=== PATIENT | female | born 1950 | race Caucasian/White ===

== ENCOUNTER 2018-01-25 09:46 | Day surgery (SDC) | payer OTHER ==
[~2018-01-25 09:46] MED LIST: ACET325 PO; ACET500 PO; ALBU90OI IH; ALBU90OI INH; ALBU90OI6 INH; ALBU90OI61 INH; ALPR.25 PO; ALPR1 PO; AMIO200 PO; ASCO500 PO; ASPI325 PO; ASPI81CH PO; AZIT250 PO; Antivert12.5 MG PO; BENICAR PO; BENTYL10 MG PO; BREO ELLIPTA 11 EACH IH; Bentyl10 MG; Brovana15 MCG/2 M; Brovana15 MCG/2 M INH; CARI350 PO; CELE200 PO; CELECOXIB200 MG; CETI5 PO; CHOL10002 PO; CIPR250 PO; CYCL10 PO; DEXL60CA3; DIAZ2 PO; DICL25ER PO; DICY20 PO; DOCSEN PO; DRON400T PO; Dicyclomine HCl10 MG PO; ENOX100I SC; ERGO400 PO; ERGO50000 PO; ESTNOR PO; ESTR.1TPBW TOP; ESTR1; ESTR2 PO; ESTRADIOL PO; FERR325 PO; FLUSAL1005 IH; FLUSAL2505 IH; FLUSAL5005 IH; FLUT110OIA INH; FURO80 PO; HYDACE5 PO; HYOS.125 SL; IBUP100S PO; IBUP400 PO; IBUP800; IBUP800 PO; LANS30EC PO; LAVAP17G; LISI20; LISI20 PO; LISI5 PO; Lisinopril2.5 MG; MAGGLU250 PO; MAGOXI400 PO; MECL25 PO; MEDR5 PO; METALAZONE; METO100ER PO; METO50 PO; METO50ER PO; METO5A PO; MULT50FEL PO; MULVITB&C; MULVITMINE PO; MULVITMINF PO; NEBI5 PO; NITR.6SL SL; NYST100P TOP; OLME40 PO; OMEP10ER; OMEP40CA12 PO; ONDA4ODT MM; OSTERA TABLET1 EACH PO; OXYACE5T PO; OXYC5 PO; PANT40 PO; PENNSAID112 GM TP; PENVK500; PROACE100; PROACE100 PO; Prednisone20 MG PO; RANI150 PO; RXCYCL10 PO; RXHYDACE PO; RXSULTRIDS PO; Ranitidine HCl300 MG; SENN187 PO; SENNP; SOMA350 MG; SOMA350 MG GT; SOMA350 MG PO; SOTO80 PO; SPIR25 PO; SULTRIDS PO; TIOT18; TIOT18 IH; TORSE20 PO; TRAZ50 PO; VARE1 PO; VITAMIN D32000 UNI1 PO; Vitamin C100 M1 PO; WARF10 PO; WARF3 PO; WARF4 PO; WARF5 PO; [UNRECOGNIZED DRUG - REMARK]
== END 2018-01-25 22:56 | disposition home or self-care (01) ==
LOC: RAD 09:46
PROVIDERS: Radiology Diagnostic Radiology
PROC: B02BYZZ Computerized Tomography (CT Scan) of Spinal Cord using Other Contrast (ICD-10-PCS; principal; 2018-01-25 11:30)
DX: M51.37 Other intervertebral disc degeneration, lumbosacral region (principal); M79.605 Pain in left leg; R20.0 Anesthesia of skin; I10 Essential (primary) hypertension; Z87.891 Personal history of nicotine dependence
CPT/HCPCS: 62304; 72132; Q9966

== ENCOUNTER 2018-01-27 13:51 | Emergency (ER) | payer OTHER ==
[~2018-01-27] VITALS: Ht 172.7 cm; Wt 112.5 kg
[2018-01-27] MEDS ORDERED: EVAMIST INH (14:41)
[2018-01-27] MEDS ORDERED: ENOX120I (14:42)
[2018-01-27] MEDS ORDERED: SOMA350 MG PO (14:42)
[2018-01-27] MEDS ORDERED: Ultram50 MG PO (15:48)
[2018-01-27] MEDS ORDERED: Kristalose20 GM PO (15:48)
== END 2018-01-27 16:00 | disposition home or self-care (01) ==
LOC: ER 13:51
DX: M54.9 Dorsalgia, unspecified (principal); G89.29 Other chronic pain; I10 Essential (primary) hypertension; I48.91 Unspecified atrial fibrillation; J44.9 Chronic obstructive pulmonary disease, unspecified; K21.9 Gastro-esophageal reflux disease without esophagitis; Z79.899 Other long term (current) drug therapy; Z79.01 Long term (current) use of anticoagulants
CPT/HCPCS: 72131; 99284

== ENCOUNTER → 2018-02-04 | Outpatient (CLI) | payer OTHER ==
[~2018-02-04] MED LIST changes: +ENOX120I; +EVAMIST INH; +Kristalose20 GM PO; +Ultram50 MG PO
== END | disposition home or self-care (01) ==
LOC: LAB 10:56
DX: R19.7 Diarrhea, unspecified (principal); R10.9 Unspecified abdominal pain; G89.29 Other chronic pain
CPT/HCPCS: 87329; 87493

== ENCOUNTER → 2019-02-20 | Outpatient (CLI) | payer OTHER ==
[~2019-02-20] MED LIST changes: -EVAMIST INH; +EVAMIST TOP; +Flovent 110 MCG12 GM INH; +INCRUSE ELLI62.5 MCG INH; +VOLTAREN100 GM
== END | disposition home or self-care (01) ==
LOC: LAB 17:29 → LAB SHORT 17:29
DX: L29.3 Anogenital pruritus, unspecified (principal)
CPT/HCPCS: 87070; 87205

== ENCOUNTER 2019-03-29 11:45 | Day surgery (SDC) | payer OTHER ==
[~2019-03-29] VITALS: Ht 172.7 cm; Wt 111.4 kg
--- NOTE | 2019-03-29 12:58 | NUR ---
03/29/19 1258 Ilan Andino 1ST IV ATTEMPT IN RH UNSUCCESSFUL, ORSC.BDK 2ND IV ATTEMPT IN RH UNSUCCESSFUL, ORSC.RSX 3RD IV ATTEMPT IN RW SUCCESSFUL, ORSC.RXS
== END 2019-03-29 14:18 | disposition home or self-care (01) ==
LOC: ORSCSDS 11:45
PROVIDERS: Internal Medicine Gastroenterology
PROC: 0DB58ZX Excision of Esophagus, Via Natural or Artificial Opening Endoscopic, Diagnostic (ICD-10-PCS; principal; 2019-03-29 13:00)
PROC: 0DB68ZX Excision of Stomach, Via Natural or Artificial Opening Endoscopic, Diagnostic (ICD-10-PCS; principal; 2019-03-29 13:00)
DX: K21.9 Gastro-esophageal reflux disease without esophagitis (principal); K22.70 Barrett's esophagus without dysplasia; K31.7 Polyp of stomach and duodenum; I10 Essential (primary) hypertension; Z95.0 Presence of cardiac pacemaker; J44.9 Chronic obstructive pulmonary disease, unspecified; Z87.891 Personal history of nicotine dependence; Z79.899 Other long term (current) drug therapy; Z79.01 Long term (current) use of anticoagulants; E66.01 Morbid (severe) obesity due to excess calories; Z68.37 Body mass index [BMI] 37.0-37.9, adult
CPT/HCPCS: 88305; J2704; J7120

== ENCOUNTER → 2019-05-26 | Outpatient (CLI) | payer OTHER | END | disposition home or self-care (01) | LOC: OLS 10:46 → LAB SHORT 10:46 | DX: R05 Cough (principal) | CPT/HCPCS: 87070; 87205 ==

== ENCOUNTER → 2019-06-29 | Outpatient (CLI) | payer OTHER | END | disposition home or self-care (01) | LOC: LAB 14:44 → LAB SHORT 14:44 | DX: R30.0 Dysuria (principal) | CPT/HCPCS: 87086 ==

== ENCOUNTER → 2019-07-26 | Outpatient (CLI) | payer OTHER ==
[2019-07-31 16:06] LABS: HPV 16 Negative (Negative); HPV 18 Negative (Negative); HPV OTHER HR TYPES Positive (Negative)
== END | disposition home or self-care (01) ==
LOC: LAB 20:29 → LAB SHORT 20:29
PROVIDERS: Family Medicine
DX: Z12.4 Encounter for screening for malignant neoplasm of cervix (principal); R39.15 Urgency of urination; R33.9 Retention of urine, unspecified
CPT/HCPCS: 87624; 87625; G0145

== ENCOUNTER 2019-08-08 12:30 | Emergency (ER) | payer OTHER ==
[~2019-08-08] VITALS: Ht 172.7 cm; Wt 108.0 kg
[2019-08-08 13:41] LABS: BASOPHILS ABSOLUTE AUTO 0.04 K/mm3 (0.00-0.23); BASOPHILS PERCENT AUTO 1 % (0-2); EOSINOPHILS ABSOLUTE AUTO 0.06 K/mm3 (0.00-0.68); EOSINOPHILS PERCENT AUTO 1 % (0-6); Hematocrit 42.2 % (33.0-51.0); Hemoglobin 13.7 g/dL (11.5-16.0); IMMATURE GRAN ABSOLUTE AUTO 0.02 K/mm3 (0.00-0.10); IMMATURE GRAN PERCENT AUTO 0 % (0-1); LYMPHOCYTES ABSOLUTE AUTO 0.95 K/mm3 (0.84-5.20); LYMPHOCYTES PERCENT AUTO 14 % (21-46); MONOCYTES PERCENT AUTO 10 % (4-13); Mean Corpuscular HGB 27.8 pg (26.0-34.0); Mean Corpuscular HGB Conc 32.5 g/dL (31.5-36.5); Mean Corpuscular Volume 86 fL (80-100); Mean Platelet Volume 10.3 fL (9.1-12.4); NEUTROPHILS ABSOLUTE AUTO 5.18 K/mm3 (1.96-9.15); NEUTROPHILS PERCENT AUTO 74 % (41-73); Platelet Count 237 K/mm3 (150-400); RDW Coefficient Variation 17.2 % (11.7-14.2); RDW Standard Deviation 53.6 fL (35.1-46.3); Red Blood Cell Count 4.93 M/mm3 (3.80-5.20); White Blood Cell Count 6.95 K/mm3 (4.00-11.30)
[2019-08-08 13:59] LABS: Alanine Aminotransfer (ALT/SGP 37 U/L (12-78); Albumin/Globulin Ratio 1.3 (0.8-1.8); Alk Phos 95 U/L (50-136); Anion Gap 6 mmol/L (6-16); Aspartate Aminotrans (AST/SGOT 23 U/L (12-37); Bilirubin, Total 0.8 mg/dL (0.1-1.0); Blood Urea Nitrogen 11 mg/dL (8-24); Bun/Creatinine Ratio 17.5 (12.0-20.0); CO2, Blood 24 mmol/L (21-32); Calcium, Blood 8.9 mg/dL (8.5-10.1); Chloride, Blood 108 mmol/L (98-108); Creatinine, Blood 0.63 mg/dL (0.40-1.00); Globulin, Blood 3.1 g/dL (2.2-4.0); Glomerular Filtration Rate >60 (60-); Glucose, Blood 117 mg/dL (70-99); Potassium, Blood 4.6 mmol/L (3.5-5.5); Sodium, Blood 138 mmol/L (136-145); Total Protein, Blood 7.1 g/dL (6.4-8.2)
[2019-08-08 14:43] LABS: International Normalized Ratio 2.57
[2019-08-08 14:56] LABS: Source, Urine Clean Catch
[2019-08-08 15:04] LABS: Bilirubin, Urine Neg (Neg); Blood, Urine 1+ (Neg); Glucose Qualitative, Urine Neg (Neg); Ketones, Urine 1+ (Neg); Leukocyte Esterase, Urine 1+ (Neg); Nitrite, Urine Pos (Neg); Protein, Urine 2+ (Neg); Specific Gravity, Urine 1.015 (1.003-1.022); Urobilinogen, Urine NORM (Normal)
[2019-08-08 15:22] LABS: Appearance, Urine Hazy (Clear); Color, Urine Yellow (P-Yellow)
[2019-08-08 15:23] LABS: Bacteria Few /hpf; Red Blood Cells, Urine 0-2 /hpf (0-2); Squamous Epithelial Cells Many /hpf (Few); White Blood Cells, Urine Rare /hpf (0-5)
== END 2019-08-08 16:28 | disposition home or self-care (01) ==
LOC: ER 12:30
PROVIDERS: Emergency Medicine
DX: R06.02 Shortness of breath (principal); R35.0 Frequency of micturition; I48.92 Unspecified atrial flutter; I48.91 Unspecified atrial fibrillation; J44.9 Chronic obstructive pulmonary disease, unspecified; I10 Essential (primary) hypertension; K21.9 Gastro-esophageal reflux disease without esophagitis; Z95.2 Presence of prosthetic heart valve; Z88.5 Allergy status to narcotic agent; Z91.018 Allergy to other foods; Z88.8 Allergy status to other drugs, medicaments and biological substances; Z79.899 Other long term (current) drug therapy
CPT/HCPCS: 36415; 71046; 80053; 81001; 83880; 85025; 85610; 87077; 87086; 87186; 93005; 93010; 99284-25

== ENCOUNTER → 2020-01-03 | Outpatient (CLI) | payer OTHER | END | disposition home or self-care (01) | LOC: LAB 07:00 → LAB SHORT 07:00 | DX: R19.7 Diarrhea, unspecified (principal) | CPT/HCPCS: 87015; 87045; 87046; 87205; 87899 ==

== ENCOUNTER → 2020-01-11 | Outpatient (CLI) | payer OTHER | END | disposition home or self-care (01) | LOC: LAB SHORT 07:00 → LAB 07:00 | DX: R19.7 Diarrhea, unspecified (principal) | CPT/HCPCS: 87177; 87209 ==

== ENCOUNTER 2020-01-31 08:37 | Day surgery (SDC) | payer OTHER ==
[~2020-01-31] VITALS: Ht 172.7 cm; Wt 104.3 kg
[2020-01-31] MEDS ORDERED: SPIR25 PO (09:23)
--- NOTE | 2020-01-31 10:04 | NUR ---
01/31/20 1004 ELDA ROJAS PATIENT REPORTED TAKING HER LOVENOX SHOT AT 1800 ON 01/30/2020, WITHIN 24 HOURS OF PLANNED UPPER ENDOSCOPY AND VENTRAL HERNIA REPAIR. PER MD INSTRUCTIONS - PATIENT TO HAVE BEEN OFF LOVENOX FOR 24 HOURS PRIOR TO PROCEDURE. BOTH AND DR. TABARES CONSULTED ON THIS CASE AND BOTH WERE INFORMED OF PATIENT HAVING LOVENOX SHOT WITH IN LAST 24 HOURS. BOTH PROVIDERS (RAYSHAWN AND CHRYSTAL) OPTED TO CANCEL PROCEDURES TODAY. PATIENT IV REMOVED AND PATIENT DRESSED. SHE LEFT FACILITY AMBULATING WITH CANE, AT BASELINE.
--- NOTE | 2020-01-31 10:06 | NUR ---
01/31/20 1006 ELDA ROJAS PLEASE SEE DETAILED NOTE FROM ACCOUNT FOR PATIENT WITH DR. TABARES FOR UPPER ENDOSCOPY - PATIENT GAVE SELF LOVENOX SHOT AT 1800 ON 01/30/2020 WHICH WAS WITHIN 24 HOURS OF PLANNED UPPER ENDOSCOPY AND VENTRAL HERNIA REPAIR SCHEDULED FOR TODAY, 01/31/2020 AT 1000. BOTH PROVIDERS (SANAZ AND RAYSHAWN) OPTED TO CANCEL PROCEDURE.
== END 2020-01-31 10:05 | disposition home or self-care (01) ==
LOC: ORSCSDS 08:37
DX: K42.9 Umbilical hernia without obstruction or gangrene (principal); K92.1 Melena; Z53.9 Procedure and treatment not carried out, unspecified reason
CPT/HCPCS: 82947; J0690; J7120

== ENCOUNTER 2020-02-19 06:43 | Day surgery (SDC) | payer OTHER ==
[~2020-02-19] VITALS: Ht 172.7 cm; Wt 104.9 kg
--- NOTE | 2020-02-19 08:33 | NUR ---
02/19/20 0833 Gris Parra PATIENT WILL BE TRANSFERRED TO [facility] VIA [facility] FOR VENTRAL HERNIA REPAIR WITH DR. YO
== END 2020-02-19 11:20 | disposition home or self-care (01) ==
LOC: ORSCSDS 06:43
PROVIDERS: Internal Medicine Gastroenterology; Surgery
PROC: 0DB68ZX Excision of Stomach, Via Natural or Artificial Opening Endoscopic, Diagnostic (ICD-10-PCS; principal; 2020-02-19 08:00)
PROC: 0WUF0JZ Supplement Abdominal Wall with Synthetic Substitute, Open Approach (ICD-10-PCS; principal; 2020-02-19 08:00)
DX: K43.9 Ventral hernia without obstruction or gangrene (principal); K31.7 Polyp of stomach and duodenum; K22.70 Barrett's esophagus without dysplasia; K44.9 Diaphragmatic hernia without obstruction or gangrene; K25.9 Gastric ulcer, unspecified as acute or chronic, without hemorrhage or perforation; Z79.01 Long term (current) use of anticoagulants; I10 Essential (primary) hypertension; I25.10 Atherosclerotic heart disease of native coronary artery without angina pectoris; Z95.0 Presence of cardiac pacemaker; I50.9 Heart failure, unspecified; Z79.899 Other long term (current) drug therapy; E66.9 Obesity, unspecified; Z68.35 Body mass index [BMI] 35.0-35.9, adult; J44.9 Chronic obstructive pulmonary disease, unspecified
CPT/HCPCS: 82947; 88305; C1781; J0690; J1100; J2001; J2370; J2405; J2704; J3010; J7040; J7120

== ENCOUNTER → 2020-03-10 | Outpatient (CLI) | payer OTHER ==
[2020-03-10 19:48] LABS: BASOPHILS ABSOLUTE AUTO 0.07 K/mm3 (0.00-0.23); BASOPHILS PERCENT AUTO 1 % (0-2); EOSINOPHILS ABSOLUTE AUTO 0.09 K/mm3 (0.00-0.68); EOSINOPHILS PERCENT AUTO 1 % (0-6); Hemoglobin 14.9 g/dL (11.5-16.0); IMMATURE GRAN ABSOLUTE AUTO 0.02 K/mm3 (0.00-0.10); IMMATURE GRAN PERCENT AUTO 0 % (0-1); LYMPHOCYTES ABSOLUTE AUTO 1.33 K/mm3 (0.84-5.20); LYMPHOCYTES PERCENT AUTO 16 % (21-46); MONOCYTES ABSOLUTE AUTO 0.72 K/mm3 (0.16-1.47); MONOCYTES PERCENT AUTO 9 % (4-13); Mean Corpuscular HGB 27.5 pg (26.0-34.0); Mean Corpuscular HGB Conc 32.4 g/dL (31.5-36.5); Mean Corpuscular Volume 85 fL (80-100); Mean Platelet Volume 10.8 fL (9.1-12.4); NEUTROPHILS ABSOLUTE AUTO 6.01 K/mm3 (1.96-9.15); NEUTROPHILS PERCENT AUTO 73 % (41-73); Platelet Count 278 K/mm3 (150-400); RDW Coefficient Variation 14.2 % (11.7-14.2); RDW Standard Deviation 44.3 fL (35.1-46.3); Red Blood Cell Count 5.42 M/mm3 (3.80-5.20); White Blood Cell Count 8.24 K/mm3 (4.00-11.30)
[2020-03-10 20:27] LABS: Percent Saturation 14.4 % (15.0-50.0)
== END | disposition home or self-care (01) ==
LOC: LAB SHORT 18:40 → LAB 18:40
PROVIDERS: Internal Medicine Hematology & Oncology
DX: E61.1 Iron deficiency (principal)
CPT/HCPCS: 83540; 83550; 85025

== ENCOUNTER → 2020-05-14 | Outpatient (CLI) | payer OTHER | END | disposition home or self-care (01) | LOC: PLD 17:49 → LAB SHORT 17:49 → LAB 17:49 | DX: R30.0 Dysuria (principal) | CPT/HCPCS: 87086 ==

== ENCOUNTER → 2020-07-04 | Outpatient (CLI) | payer OTHER ==
[~2020-07-04] MED LIST changes: +ALBU2.5V5 NEB; +Bentyl10 MG PO; -Brovana15 MCG/2 M; +Brovana15 MCG/2 M NEB; +DEXA2 PO; +DOCUZEN 8.6-501 EACH PO; +ESTRADIOL TOP; +ESTRADIOL42.5 GM VAG; -EVAMIST TOP; -Flovent 110 MCG12 GM INH; +Flovent 220 Ora12 GM INH; +GUAI600T33 PO; +IBUP600 PO; -INCRUSE ELLI62.5 MCG INH; +INCRUSE ELLIPTA 62.5 INH; +MULTI-VITAMIN1 EAC2 PO; +MYRBETRIQ50 MG PO; -NYST100P TOP; +NYSTOP15 GM TOP; +VITAMIN D31000 UNI1 PO; +ZYRTEC10 M2 PO
== END | disposition home or self-care (01) ==
LOC: LAB 15:00 → LAB SHORT 15:00
DX: R60.0 Localized edema (principal)
CPT/HCPCS: 87070; 87205

== ENCOUNTER 2020-07-11 11:31 | Emergency (ER) | payer OTHER ==
[~2020-07-11] VITALS: Ht 172.7 cm; Wt 109.8 kg
[~2020-07-11 11:31] MED LIST changes: -ALBU2.5V5 NEB; -Bentyl10 MG PO; +Brovana15 MCG/2 M; -Brovana15 MCG/2 M NEB; -DEXA2 PO; -DOCUZEN 8.6-501 EACH PO; -ESTRADIOL TOP; -ESTRADIOL42.5 GM VAG; +EVAMIST TOP; +Flovent 110 MCG12 GM INH; -Flovent 220 Ora12 GM INH; -GUAI600T33 PO; -IBUP600 PO; +INCRUSE ELLI62.5 MCG INH; -INCRUSE ELLIPTA 62.5 INH; -MULTI-VITAMIN1 EAC2 PO; -MYRBETRIQ50 MG PO; +NYST100P TOP; -NYSTOP15 GM TOP; -VITAMIN D31000 UNI1 PO; -ZYRTEC10 M2 PO
[2020-07-11 12:25] LABS: BASOPHILS ABSOLUTE AUTO 0.04 K/mm3 (0.00-0.23); BASOPHILS PERCENT AUTO 1 % (0-2); EOSINOPHILS ABSOLUTE AUTO 0.08 K/mm3 (0.00-0.68); EOSINOPHILS PERCENT AUTO 1 % (0-6); Hemoglobin 14.2 g/dL (11.5-16.0); IMMATURE GRAN ABSOLUTE AUTO 0.02 K/mm3 (0.00-0.10); IMMATURE GRAN PERCENT AUTO 0 % (0-1); LYMPHOCYTES ABSOLUTE AUTO 0.94 K/mm3 (0.84-5.20); LYMPHOCYTES PERCENT AUTO 13 % (21-46); MONOCYTES ABSOLUTE AUTO 0.66 K/mm3 (0.16-1.47); MONOCYTES PERCENT AUTO 9 % (4-13); Mean Corpuscular HGB 26.9 pg (26.0-34.0); Mean Corpuscular HGB Conc 31.6 g/dL (31.5-36.5); Mean Corpuscular Volume 85 fL (80-100); Mean Platelet Volume 10.5 fL (9.1-12.4); NEUTROPHILS PERCENT AUTO 77 % (41-73); Platelet Count 209 K/mm3 (150-400); RDW Coefficient Variation 14.7 % (11.7-14.2); RDW Standard Deviation 46.4 fL (35.1-46.3); Red Blood Cell Count 5.27 M/mm3 (3.80-5.20); White Blood Cell Count 7.44 K/mm3 (4.00-11.30)
[2020-07-11 12:45] LABS: Alanine Aminotransfer (ALT/SGP 48 U/L (12-78); Albumin, Blood 3.6 g/dL (3.4-5.0); Albumin/Globulin Ratio 1.2 (0.8-1.8); Alk Phos 73 U/L (50-136); Anion Gap 5 mmol/L (6-16); Aspartate Aminotrans (AST/SGOT 23 U/L (12-37); Bilirubin, Total 1.4 mg/dL (0.1-1.0); Blood Urea Nitrogen 11 mg/dL (8-24); Bun/Creatinine Ratio 14.8 (12.0-20.0); CO2, Blood 29 mmol/L (21-32); Chloride, Blood 106 mmol/L (98-108); Creatinine, Blood 0.74 mg/dL (0.40-1.00); Globulin, Blood 3.1 g/dL (2.2-4.0); Glomerular Filtration Rate >60 (60-); Glucose, Blood 147 mg/dL (70-99); Sodium, Blood 140 mmol/L (136-145); Total Protein, Blood 6.7 g/dL (6.4-8.2); Troponin I <0.015 ng/mL (0.000-0.040)
[2020-07-11] MEDS ORDERED: MYRBETRIQ50 MG PO (13:31)
[2020-07-11] MEDS ORDERED: SENN187 PO (13:33)
[2020-07-11] MEDS ORDERED: ELLIPTA INH (13:38)
== END 2020-07-11 14:14 | disposition home or self-care (01) ==
LOC: ER 11:31
PROVIDERS: Emergency Medicine
DX: I87.8 Other specified disorders of veins (principal); R06.02 Shortness of breath; R33.9 Retention of urine, unspecified; I48.91 Unspecified atrial fibrillation; I10 Essential (primary) hypertension; J44.9 Chronic obstructive pulmonary disease, unspecified; K21.9 Gastro-esophageal reflux disease without esophagitis; Z87.891 Personal history of nicotine dependence; Z79.01 Long term (current) use of anticoagulants; Z79.899 Other long term (current) drug therapy; Z95.0 Presence of cardiac pacemaker
CPT/HCPCS: 36415; 71045; 80053; 83880; 84484; 85025; 93005; 93010; 99284-25

== ENCOUNTER 2020-08-01 10:57 | Inpatient (IN) | payer OTHER ==
[~2020-08-01] VITALS: Ht 172.7 cm; Wt 99.6 kg
[~2020-08-01 10:57] MED LIST changes: -Brovana15 MCG/2 M; -EVAMIST TOP; -Flovent 110 MCG12 GM INH; -INCRUSE ELLI62.5 MCG INH; -NYST100P TOP
[2020-08-01 11:47] LABS: BASOPHILS ABSOLUTE AUTO 0.01 K/mm3 (0.00-0.23); BASOPHILS PERCENT AUTO 0 % (0-2); EOSINOPHILS PERCENT AUTO 0 % (0-6); Hematocrit 44.4 % (33.0-51.0); Hemoglobin 14.6 g/dL (11.5-16.0); IMMATURE GRAN ABSOLUTE AUTO 0.01 K/mm3 (0.00-0.10); IMMATURE GRAN PERCENT AUTO 0 % (0-1); LYMPHOCYTES ABSOLUTE AUTO 0.61 K/mm3 (0.84-5.20); LYMPHOCYTES PERCENT AUTO 12 % (21-46); MONOCYTES ABSOLUTE AUTO 0.48 K/mm3 (0.16-1.47); MONOCYTES PERCENT AUTO 9 % (4-13); Mean Corpuscular HGB Conc 32.9 g/dL (31.5-36.5); Mean Corpuscular Volume 82 fL (80-100); Mean Platelet Volume 11.1 fL (9.1-12.4); NEUTROPHILS ABSOLUTE AUTO 4.13 K/mm3 (1.96-9.15); NEUTROPHILS PERCENT AUTO 79 % (41-73); Platelet Count 164 K/mm3 (150-400); RDW Coefficient Variation 14.4 % (11.7-14.2); RDW Standard Deviation 42.9 fL (35.1-46.3); Red Blood Cell Count 5.41 M/mm3 (3.80-5.20); White Blood Cell Count 5.24 K/mm3 (4.00-11.30)
[2020-08-01 12:09] LABS: Alanine Aminotransfer (ALT/SGP 34 U/L (12-78); Albumin, Blood 3.5 g/dL (3.4-5.0); Albumin/Globulin Ratio 1.1 (0.8-1.8); Alk Phos 81 U/L (50-136); Anion Gap 8 mmol/L (6-16); Aspartate Aminotrans (AST/SGOT 33 U/L (12-37); Bilirubin, Total 1.1 mg/dL (0.1-1.0); Blood Urea Nitrogen 12 mg/dL (8-24); Bun/Creatinine Ratio 17.5 (12.0-20.0); CO2, Blood 26 mmol/L (21-32); Calcium, Blood 8.6 mg/dL (8.5-10.1); Chloride, Blood 102 mmol/L (98-108); Creatinine, Blood 0.69 mg/dL (0.40-1.00); Globulin, Blood 3.3 g/dL (2.2-4.0); Glomerular Filtration Rate >60 (60-); Glucose, Blood 134 mg/dL (70-99); Potassium, Blood 3.6 mmol/L (3.5-5.5); Sodium, Blood 136 mmol/L (136-145); Total Protein, Blood 6.8 g/dL (6.4-8.2)
[2020-08-01] MEDS ORDERED: ALBU2.5V5 NEB (13:26)
[2020-08-01] MEDS ORDERED: NYSTOP15 GM TOP (13:27)
[2020-08-01] MEDS ORDERED: MYRBETRIQ50 MG PO (13:28)
[2020-08-01] MEDS ORDERED: ALBU90OI INH (13:29)
[2020-08-01] MEDS ORDERED: MEDR5 PO (13:30)
[2020-08-01] MEDS ORDERED: ESTRADIOL TOP (13:34)
[2020-08-01] MEDS ORDERED: Brovana15 MCG/2 M NEB (13:35)
[2020-08-01] MEDS ORDERED: Flovent 220 Ora12 GM INH (13:36)
[2020-08-01] MEDS ORDERED: ESTRADIOL42.5 GM VAG (13:40)
[2020-08-01] MEDS ORDERED: WARF5 PO (13:41)
[2020-08-01] MEDS ORDERED: INCRUSE ELLIPTA 62.5 INH (13:44)
[2020-08-01] MEDS ORDERED: LISI5 PO (13:46)
[2020-08-01] MEDS ORDERED: DEXL60CA3 (13:48)
[2020-08-01] MEDS ORDERED: SPIR25 PO (13:49)
[2020-08-01] MEDS ORDERED: TORSE20 PO (14:50)
[2020-08-01] MEDS ORDERED: Bentyl10 MG PO (14:51)
[2020-08-01] MEDS ORDERED: DOCUZEN 8.6-501 EACH PO (14:53)
[2020-08-01 14:54] LABS: International Normalized Ratio 3.32; Prothrombin Time Results 33.2 Sec (9.7-11.5)
[2020-08-01] MEDS ORDERED: ACET500 PO (14:54)
[2020-08-01] MEDS ORDERED: ZYRTEC10 M2 PO (14:54)
[2020-08-01] MEDS ORDERED: SOMA350 MG PO (14:55)
[2020-08-01] MEDS ORDERED: IBUP600 PO (14:56)
[2020-08-01] MEDS ORDERED: MULTI-VITAMIN1 EAC2 PO (14:56)
[2020-08-01] MEDS ORDERED: VITAMIN D31000 UNI1 PO (14:57)
[2020-08-01] MEDS ORDERED: ASCO500 PO (16:35)
--- NOTE | 2020-08-01 18:13 | NUR ---
SHIFT SUMMARY. ADMISSION NOTE PT AXO, COOPERATIVE WITH CARE THOUGH ANXIOUS AND CRYING AT TIMES. PT STATES SHE IS SCARED. THIS NURSE UTILIZED ACTIVE LISTENING AND THERAPEUTIC COMMUNICATION TO CALM PATIENT. PT COMPLAINS OF NECK AND BACK PAIN R/T PILLOWS HERE "NOT SOFT ENOUGH." THIS NURSE SUGGESTED MAYBE HAVING SOMEONE FROM HOME BRING HER PILLOW FROM HOME. DR GUILLEN NOTIFIED ABOUT PAIN/SPASMS, NEW ORDER INITIATED. PATIENT REQUESTS FURTHER INFORMATION ABOUT ADVANCED DIRECTIVES, PT GIVEN AD PAMPLET. BED IN LOW POSITION, CALL LIGHT WITHIN REACH. PT UP AD HOSEA IN ROOM. 92% ON RA.
--- NOTE | 2020-08-02 04:55 | NUR ---
SPEECH PATHOLOGY SUPERVISOR SUMMARY PT A&OX4, ABLE TO MAKE NEEDS KNOWN, COOPERATIVE TO CARE. PT MEDICATED FOR MUSCLE SPASMS PER EMAR, PT VERBALIZED THAT PRN SOMA HAS BEEN EFFECTIVE IN CONTROLLING HER SPASMS. PT ANXIOUS AND TEARFUL AT TIMES, CALM REASSURANCE AND THERAPEUTIC COMMUNICATION EFFECTIVE IN CALMING PATIENT. PT RESTED IN BED T/O SHIFT, 1P SBA TO BATHROOM. NO CP, N&V. PT REPORTED MINOR SOB WITH EXERTION WHEN AMBULATING IN ROOM. RESP EVEN AND UNLBORED, IN RA. SCHED RESP TX ADMIN BY RT. SATS AT 95-96% IN RA. BED AT LOWEST POSITION, CALL LIGHT WITHIN REACH.
[2020-08-02 06:20] LABS: Alanine Aminotransfer (ALT/SGP 32 U/L (12-78); Albumin, Blood 3.5 g/dL (3.4-5.0); Alk Phos 82 U/L (50-136); Anion Gap 6 mmol/L (6-16); Aspartate Aminotrans (AST/SGOT 33 U/L (12-37); Bilirubin, Total 0.9 mg/dL (0.1-1.0); Blood Urea Nitrogen 14 mg/dL (8-24); Bun/Creatinine Ratio 21.2 (12.0-20.0); CO2, Blood 31 mmol/L (21-32); Calcium, Blood 9.3 mg/dL (8.5-10.1); Chloride, Blood 99 mmol/L (98-108); Creatinine, Blood 0.66 mg/dL (0.40-1.00); Globulin, Blood 3.6 g/dL (2.2-4.0); Glomerular Filtration Rate >60 (60-); Glucose, Blood 146 mg/dL (70-99); Potassium, Blood 3.7 mmol/L (3.5-5.5); Sodium, Blood 136 mmol/L (136-145); Total Protein, Blood 7.1 g/dL (6.4-8.2)
[2020-08-02 06:25] LABS: International Normalized Ratio 3.1; Prothrombin Time Results 31.1 Sec (9.7-11.5)
--- NOTE | 2020-08-02 18:26 | NUR ---
PT AOX4 AND COOPERATIVE OF CARE. PT HAS BEEN DOING WELL INDEPENDENTLY IN HER ROOM AND USES CALL LIGHT APPROPRAITELY. PT HAS MILD SOB, BUT STATES SHE IS DOING OKAY RIGHT NOW. TREATED FOR PAIN PER EMAR. NO DISTRESS NOTED AT THIS TIME WILL CONTINUE TO MONITOR.
--- NOTE | 2020-08-03 05:07 | NUR ---
HOOKING MACHINE OPERATOR SUMMARY PT A&OX4, ABLE TO MAKE NEEDS KNOWN, COOPERATIVE TO CARE, CALLS APPROPRIATELY FOR ASSISTANCE. PT ANXIOUS AT TIMES, PROVIDED CALM REASSURANCE TO PT. PT MEDICATED FOR PAIN PER EMAR. ALSO MEDICATED FOR MUSCLE SPASMS. PT CALM AND RESTED IN BED AT THIS TIME. NO C/O CP, SOB, OR N&V. BED AT LOWEST POSITION, CALL LIGHT WITHIN REACH.
[2020-08-03 06:11] LABS: International Normalized Ratio 2.87; Prothrombin Time Results 28.9 Sec (9.7-11.5)
--- NOTE | 2020-08-03 18:09 | NUR ---
PT HAS BEEN DOING WELL TODAY. PT AOX4 AND COOPERATIVE OF CARE. PT HAS BEEN INDEPENDENT IN ROOM AND CALLS APPROPRIATELY. PT CONTINUES TO HAVE A COUGH AND IS TREATED PER EMAR. PT STATED SHE WAS VERY ANXIOUS THROUGH THE NIGHT, BUT FELT BETTER TODAY. PT IS EATING DINNER AT THIS TIME, CALL LIGHT WITHIN REACH WILL CONTINUE TO MONITOR.
--- NOTE | 2020-08-03 23:49 | NUR ---
08/03/20 5566 PT UNABLE TO SLEEP AND REQUESTING MED TO ASSIST WITH FALLING ASLEEP. LOCKSTITCH COAT JOINER PAGED FOR MED. SEE MAR.
--- NOTE | 2020-08-04 06:40 | NUR ---
08/04/20 0630 UP TO BR FOR VOIDING. VITALS TAKEN AND STABLE. STATES SHE SLEPT WELL AFTER IV ATIVAN GIVEN LAST NIGHT. UNEVENTFUL NIGHT.
[2020-08-04 06:59] LABS: International Normalized Ratio 2.03; Prothrombin Time Results 20.9 Sec (9.7-11.5)
--- NOTE | 2020-08-04 13:11 | NUR ---
Spiritual care visit conducted. Patient is sitting up in bed and alert. Patient immediately shares about her life long spiritual journey, her abandonment issues, complicated grief issues and her frustrations connected to the current political arena. She also explains about her many medical issues, the stress this causes and about some of her personal struggles. Patient has a low degree of spiritual distress. I normalize patient's experience, hear confession, and provide a calming presence, therapeutic listening, grief support and prayer. Patient responds well and shows signs of restored jaylan and increased sense of value and worth. I will continue to remain available to patient to work through spiritual/emotional issues.
--- NOTE | 2020-08-04 17:28 | NUR ---
SHIFT SUMMARY- PT IS A/O, PLESANT AND COOPERAITIVE. SHE IS EATING AND DRINKING WELL. SHE TOOK A SHOWER THIS SHIFT. SHE IS INDEPENDENT IN THE ROOM. SHE IS ON ROOM AIR AND MAINTAINING HER SATS. SHE IS WORKING WITH RT. PLAN IS TO FINISH TWO MORE DAYS OF IV MEDICATIONS THEN PROBABLE DISCHARGE.
--- NOTE | 2020-08-04 22:59 | NUR ---
08/04/20 2164 PT UNABLE TO RELAX ENOUGH FROM CHRONIC NECK SPASMS. ANXIOUS AND STILL UNABLE TO SLEEP. REQUESTED ANOTHER MED TO PROMOTE SLEEP AND RN PAGED ON-CALL MD FOR ORDER. SEE MAR FOR MED GIVEN IV. TOPICAL CREAM FOR NECK DISCOMFORT ALSO GIVEN.
--- NOTE | 2020-08-05 03:50 | NUR ---
08/05/20 0350 PT SLEEPING BETTER AFTER SECOND ANTI-ANXIETY MED GIVEN LAST NIGHT. HEART MONITOR STABLE AT PACED RATE IN THE 60'S. PT REMAINS ON ROOM AIR. PT HAS BEEN VERY ANXIOUS ABOUT PRESENT HEALTH CONDITION AND AGGRAVATED NECK DISCOMFORT DUE TO "UNCOMFORTABLE PILLOWS". OCC.COUGHING EPISODES NOTED AND GIVEN COUGH SUPPRESSANT WHEN REQUESTED.
[2020-08-05 06:45] LABS: International Normalized Ratio 1.58; Prothrombin Time Results 16.5 Sec (9.7-11.5)
--- NOTE | 2020-08-05 17:53 | NUR ---
SUMMARY PT SITTING UP IN BED EATING DINNER, PT HAS BEEN PLEASANT AND COOPERATIVE WITH CARE, INDEPENDENT IN THE ROOM, DYSPNEA WITH ACTIVITY, HOPEFUL TO DC HOME TOMORROW, VSS, REMAINS ON ROOM AIR, WILL CONT TO MONITOR
--- NOTE | 2020-08-06 03:55 | NUR ---
FOOD AND DRUG INSPECTOR SUMMARY A/OX4, IND IN ROOM. APPEARED TO SLEEP T/O SHIFT. PT HAD INCREASING ANXIETY DUE TO PAIN AT BEGINNING OF SHIFT, ONE TIME ORDER FOR IV LORAZEPAM GIVEN WELL PO TYLENOL. DENIES SOB, CURRENTLY ON RA. VSS, NO ACUTE CHANGES AT THIS TIME. BED IN LOWEST POSITION WITH CALL LIGHT IN REACH. WILL CONTINUE TO MONITOR AND REPORT TO ONCOMING RN.
[2020-08-06 05:11] LABS: International Normalized Ratio 1.56; Prothrombin Time Results 16.3 Sec (9.7-11.5)
--- NOTE | 2020-08-06 13:39 | NUR ---
Spiritual care visit conducted. Patient immediately is tearful when I enter patient's rm. Patient states that she is glad I am here because she is feeling weak and vulnerable. She is overwhelmed by the unknowns and is fearful of the power of the virus. Patient also discusses her home and the challenges she would face if she had to DC in her current state. Patient shares personal information and with tears at times. I listen empathically, normaize her fears and provide pastoral counseling aide and prayer. Patient responds well and displays eviedence of feeling more secure and grounded. I will continue to remain available to work patient through the spiritual/emotional aspects of life limiting disease.
--- NOTE | 2020-08-06 17:09 | NUR ---
SUMMARY PT SITTING UP IN BED WATCHING TV, PT HAS BEEN PLEASANT AND COOPERATIVE WITH CARE, INDEPENDENT IN THE ROOM, PT HAD A SHOWER TODAY, DYSPNEIC WITH ANY ACTIVITY, PT ANXIOUS ABOUT GOING HOME SOON, POSSIBLE DC IN AM, PT REMAINS OFF OF OXYGEN, VSS, WILL CONT TO MONITOR
--- NOTE | 2020-08-06 23:28 | NUR ---
PATIENT HAVING INCREASED ANXIETY. HOSPITALIST DR GUILLEN ORDERED IV ATIVAN 1 MG X ONE. PATIENT REPORTS SHE TRIED PO ATIVAN 0.5 MG AND NOT EFFECTIVE LAST NOC SHIFT. IV ATIVAN 1 MG GIVEN LAST NOC SHIFT X ONE AND EFFECTIVE. CALL LIGHT IN REACH.
--- NOTE | 2020-08-07 03:31 | NUR ---
SHIFT SUMMARY PATIENT ANXIOUS DURING SHIFT AND WANTED IV ATIVAN FOR HER ANXIETY. PO ATIVAN 0.5 MG IN EMAR AND SHE REPORTED IT WAS NOT EFFECTIVE PREVIOUS SHIFT. HOSPITALIST DR GUILLEN ORDERED IV ATIVAN 1 MG X ONE FOR ANXIETY. PATIENT REPORTED MUSCLE SPAMS AND NECK PAIN. PO SOMA 350 MG GIVEN AND TYLENOL 650 MG PER EMAR. PATIENT ABLE TO SLEEP FOR 3-4 HOURS. RT IN FOR BREATHING TX DURING SHIFT. ON ROOM AIR. VSS/AFEBRILE. NO N/V REPORTED. PIV REMAINS INTACT. EDUCATION INTERN REPORTS PACED AT 73. CALL LIGHT IN REACH. BED IN LOWEST POSITION. WILL CONTINUE TO MONITOR UNTIL DAY SHIFT NURSE ASSUMES CARE.
[2020-08-07 05:48] LABS: International Normalized Ratio 1.84
[2020-08-07] MEDS ORDERED: GUAI600T33 PO (13:02)
[2020-08-07] MEDS ORDERED: DEXA2 PO (13:02)
== END 2020-08-07 15:10 | disposition home or self-care (01) | DRG 177 ==
LOC: ER 10:57 → MEDS 10:58
PROVIDERS: Emergency Medicine; Nurse Practitioner Acute Care; Pharmacist; ADMIT Internal Medicine
PROC: XW033E5 Introduction of Remdesivir Anti-infective into Peripheral Vein, Percutaneous Approach, New Technology Group 5 (ICD-10-PCS; principal; 2020-08-04)
PROC: 3E0333Z Introduction of Anti-inflammatory into Peripheral Vein, Percutaneous Approach (ICD-10-PCS; 2020-08-04)
DX: U07.1 COVID-19 (principal); J12.89 Other viral pneumonia; J44.0 Chronic obstructive pulmonary disease with (acute) lower respiratory infection; I10 Essential (primary) hypertension; K21.9 Gastro-esophageal reflux disease without esophagitis; I48.0 Paroxysmal atrial fibrillation; Z95.2 Presence of prosthetic heart valve; Z87.891 Personal history of nicotine dependence; Z79.01 Long term (current) use of anticoagulants; F41.1 Generalized anxiety disorder; Z95.0 Presence of cardiac pacemaker
CPT/HCPCS: 36415; 71045; 80053; 83605; 84145; 85025; 85610; 93005; 93010; 94640; 94760; 96374; 96375; 96376; 99285-25; A9270; A9270-GY; G0378; J1100; J1650; J2060; J7050

== ENCOUNTER → 2020-11-25 | Outpatient (CLI) | payer OTHER ==
[~2020-11-25] MED LIST changes: +ALBU2.5V5 NEB; +Bentyl10 MG PO; +Brovana15 MCG/2 M NEB; +DEXA2 PO; +DOCUZEN 8.6-501 EACH PO; +ESTRADIOL TOP; +ESTRADIOL42.5 GM VAG; +Flovent 220 Ora12 GM INH; +GUAI600T33 PO; +IBUP600 PO; +INCRUSE ELLIPTA 62.5 INH; +MULTI-VITAMIN1 EAC2 PO; +MYRBETRIQ50 MG PO; +NYSTOP15 GM TOP; +VITAMIN D31000 UNI1 PO; +ZYRTEC10 M2 PO
[2020-11-25 13:45] LABS: Source, Urine Clean Catch
[2020-11-25 15:10] LABS: Appearance, Urine Clear (Clear); Bilirubin, Urine Neg (Neg); Blood, Urine Neg (Neg); Color, Urine Yellow (P-Yellow); Glucose Qualitative, Urine Neg (Neg); Ketones, Urine Neg (Neg); Leukocyte Esterase, Urine 1+ (Neg); Nitrite, Urine Neg (Neg); Protein, Urine 2+ (Neg); Specific Gravity, Urine 1.015 (1.003-1.022); Urobilinogen, Urine 1+ (Normal); pH, Urine 6.5 (5.0-8.0)
[2020-11-25 15:24] LABS: Bacteria Few /hpf; Red Blood Cells, Urine 0-2 /hpf (0-2); Squamous Epithelial Cells Few /hpf (Few)
== END | disposition home or self-care (01) ==
LOC: PLD 13:42 → LAB SHORT 13:42
PROVIDERS: Family Medicine
DX: M25.559 Pain in unspecified hip (principal)
CPT/HCPCS: 81001; 87086

== ENCOUNTER 2020-12-10 14:04 | Emergency (ER) | payer OTHER ==
[~2020-12-10] VITALS: Ht 172.7 cm; Wt 111.6 kg
[2020-12-10 14:51] LABS: BASOPHILS ABSOLUTE AUTO 0.04 K/mm3 (0.00-0.23); BASOPHILS PERCENT AUTO 1 % (0-2); EOSINOPHILS ABSOLUTE AUTO 0.07 K/mm3 (0.00-0.68); EOSINOPHILS PERCENT AUTO 1 % (0-6); Hematocrit 41.9 % (33.0-51.0); Hemoglobin 13.8 g/dL (11.5-16.0); IMMATURE GRAN ABSOLUTE AUTO 0.01 K/mm3 (0.00-0.10); IMMATURE GRAN PERCENT AUTO 0 % (0-1); LYMPHOCYTES ABSOLUTE AUTO 0.79 K/mm3 (0.84-5.20); LYMPHOCYTES PERCENT AUTO 12 % (21-46); MONOCYTES PERCENT AUTO 9 % (4-13); Mean Corpuscular HGB 27.1 pg (26.0-34.0); Mean Corpuscular HGB Conc 32.9 g/dL (31.5-36.5); Mean Corpuscular Volume 82 fL (80-100); Mean Platelet Volume 10.9 fL (9.1-12.4); NEUTROPHILS ABSOLUTE AUTO 5.33 K/mm3 (1.96-9.15); NEUTROPHILS PERCENT AUTO 78 % (41-73); Platelet Count 195 K/mm3 (150-400); RDW Coefficient Variation 14.6 % (11.7-14.2); RDW Standard Deviation 44.3 fL (35.1-46.3); Red Blood Cell Count 5.09 M/mm3 (3.80-5.20); White Blood Cell Count 6.84 K/mm3 (4.00-11.30)
[2020-12-10 15:19] LABS: Alanine Aminotransfer (ALT/SGP 45 U/L (12-78); Albumin, Blood 3.4 g/dL (3.4-5.0); Albumin/Globulin Ratio 1.2 (0.8-1.8); Alk Phos 69 U/L (50-136); Anion Gap 5 mmol/L (6-16); Aspartate Aminotrans (AST/SGOT 32 U/L (12-37); Bilirubin, Total 1.9 mg/dL (0.1-1.0); Blood Urea Nitrogen 19 mg/dL (8-24); Bun/Creatinine Ratio 21.2 (12.0-20.0); CO2, Blood 27 mmol/L (21-32); Calcium, Blood 8.8 mg/dL (8.5-10.1); Chloride, Blood 106 mmol/L (98-108); Globulin, Blood 2.9 g/dL (2.2-4.0); Glomerular Filtration Rate >60 (60-); Glucose, Blood 141 mg/dL (70-99); Potassium, Blood 3.9 mmol/L (3.5-5.5); Sodium, Blood 138 mmol/L (136-145); Total Protein, Blood 6.3 g/dL (6.4-8.2); Troponin I <0.015 ng/mL (0.000-0.040)
[2020-12-10 17:31] LABS: Source, Urine Clean Catch
[2020-12-10 17:42] LABS: Bilirubin, Urine Neg (Neg); Blood, Urine 1+ (Neg); Glucose Qualitative, Urine Neg (Neg); Ketones, Urine Neg (Neg); Leukocyte Esterase, Urine 1+ (Neg); Nitrite, Urine Neg (Neg); Protein, Urine 2+ (Neg); Urobilinogen, Urine 2+ (Normal); pH, Urine 6.5 (5.0-8.0)
[2020-12-10 17:55] LABS: Appearance, Urine Hazy (Clear); Color, Urine Yellow (P-Yellow)
[2020-12-10 17:58] LABS: Bacteria Mod /hpf; Red Blood Cells, Urine 0-2 /hpf (0-2); Squamous Epithelial Cells Many /hpf (Few)
== END 2020-12-10 20:19 | disposition home or self-care (01) ==
LOC: ER 14:04
PROVIDERS: Physician Assistant
DX: J43.9 Emphysema, unspecified (principal); Z79.899 Other long term (current) drug therapy; Z88.5 Allergy status to narcotic agent; Z91.018 Allergy to other foods; Z91.09 Other allergy status, other than to drugs and biological substances; Z79.01 Long term (current) use of anticoagulants; Z87.891 Personal history of nicotine dependence
CPT/HCPCS: 71045; 71260; 80053; 81001; 83880; 84484; 85025; 87086; 93005; 93010; 99285-25; Q9967

== ENCOUNTER 2021-02-11 10:14 | Observation (INO) | payer OTHER ==
[~2021-02-11] VITALS: Ht 172.7 cm; Wt 109.2 kg
[~2021-02-11 10:14] MED LIST changes: +DEXL60CA3 PO
[2021-02-11 11:56] LABS: BASOPHILS ABSOLUTE AUTO 0.04 K/mm3 (0.00-0.23); BASOPHILS PERCENT AUTO 1 % (0-2); EOSINOPHILS ABSOLUTE AUTO 0.09 K/mm3 (0.00-0.68); EOSINOPHILS PERCENT AUTO 1 % (0-6); Hematocrit 42.8 % (33.0-51.0); IMMATURE GRAN ABSOLUTE AUTO 0.02 K/mm3 (0.00-0.10); IMMATURE GRAN PERCENT AUTO 0 % (0-1); LYMPHOCYTES ABSOLUTE AUTO 0.88 K/mm3 (0.84-5.20); LYMPHOCYTES PERCENT AUTO 13 % (21-46); MONOCYTES ABSOLUTE AUTO 0.65 K/mm3 (0.16-1.47); MONOCYTES PERCENT AUTO 9 % (4-13); Mean Corpuscular HGB 26.8 pg (26.0-34.0); Mean Corpuscular HGB Conc 32.7 g/dL (31.5-36.5); Mean Corpuscular Volume 82 fL (80-100); Mean Platelet Volume 10.5 fL (9.1-12.4); NEUTROPHILS ABSOLUTE AUTO 5.35 K/mm3 (1.96-9.15); NEUTROPHILS PERCENT AUTO 76 % (41-73); Platelet Count 199 K/mm3 (150-400); RDW Coefficient Variation 15.9 % (11.7-14.2); RDW Standard Deviation 47.2 fL (35.1-46.3); Red Blood Cell Count 5.23 M/mm3 (3.80-5.20); White Blood Cell Count 7.03 K/mm3 (4.00-11.30)
[2021-02-11 12:09] LABS: International Normalized Ratio 1.23; Prothrombin Time Results 13.1 Sec (9.7-11.5)
[2021-02-11 12:11] LABS: Alanine Aminotransfer (ALT/SGP 56 U/L (12-78); Albumin, Blood 3.7 g/dL (3.4-5.0); Albumin/Globulin Ratio 1.2 (0.8-1.8); Alk Phos 81 U/L (50-136); Anion Gap 7 mmol/L (6-16); Aspartate Aminotrans (AST/SGOT 33 U/L (12-37); Bilirubin, Total 1.4 mg/dL (0.1-1.0); Blood Urea Nitrogen 16 mg/dL (8-24); Bun/Creatinine Ratio 19.7 (12.0-20.0); CO2, Blood 26 mmol/L (21-32); Calcium, Blood 9.2 mg/dL (8.5-10.1); Chloride, Blood 103 mmol/L (98-108); Creatinine, Blood 0.81 mg/dL (0.40-1.00); Globulin, Blood 3.2 g/dL (2.2-4.0); Glomerular Filtration Rate >60 (60-); Glucose, Blood 118 mg/dL (70-99); Potassium, Blood 3.9 mmol/L (3.5-5.5); Sodium, Blood 136 mmol/L (136-145); Total Protein, Blood 6.9 g/dL (6.4-8.2)
[2021-02-11] MEDS ORDERED: OLOPATADINE HC2.5 ML BOTHEYES (12:19)
[2021-02-11] MEDS ORDERED: ESTRADIOL (12:20)
[2021-02-11] MEDS ORDERED: ENOX120I SC (13:03)
[2021-02-11] MEDS ORDERED: Bentyl10 MG PO (16:11)
[2021-02-11] MEDS ORDERED: [UNRECOGNIZED DRUG - OTHER] PO (16:12)
[2021-02-11] MEDS ORDERED: PROAIR RESPICL90 MCG INH (16:16)
[2021-02-11] MEDS ORDERED: ACET500 PO (16:18)
[2021-02-11] MEDS ORDERED: NYSTOP15 GM TOP (16:19)
[2021-02-11] MEDS ORDERED: KETO15TC TOP (16:20)
[2021-02-11] MEDS ORDERED: VOLTAREN ARTHRI20 GM TOP (16:21)
[2021-02-11] MEDS ORDERED: Carisoprodol350 MG PO (16:21)
[2021-02-11] MEDS ORDERED: CETI5 PO (16:22)
--- NOTE | 2021-02-11 16:49 | NUR ---
PACEMAKER DEVICE INTERROGATED. NO ERROR FOUND, READING FINE PER MANAGER DATA CENTER. TECH STATED SHE WOULD RELAY RESULTS TO DR. SOARES.
--- NOTE | 2021-02-11 18:36 | NUR ---
SHIFT SUMMARY: ASSUMED CARE OF PATIENT AT 1509 UPON HER ARRIVAL FROM ER. DR. SOARES CAME TO BS AT 1654 TO EVALUATE HEMATOMA AT PACEMAKER SITE. AREA IS SWOLLEN, ERYTHEMATOUS, TTP. INCISION IS APPROXIMATED WITH STERI STRIPS. PROVIDER ORDERED ICE PACKS (TO BE CHANGED [id number]) TOPPED WITH SANDBAG TO DECREASE SWELLING. HAS DIFFICULTY MOVING RLE D/T OBTURATOR NERVE DAMAGE, USES CANE. SOME PALUMBO NOTED AFTER TRIP TO . PACEMAKER INTERROGATION COMPLETE.
--- NOTE | 2021-02-12 00:22 | NUR ---
patient wide awake and complaining of insomnia. takes benedryl at home for occasional sleep difficulties. call placed to MD. awaiting return call.
[2021-02-12 07:44] LABS: International Normalized Ratio 1.22
--- NOTE | 2021-02-12 08:00 | NUR ---
Yojana MANAGED TO KEEP THE ICE PACKS AND 5# WEIGHT RIGHT IN PLACE OVERNIGHT, HOWEVER, THE HEMATOMA APPEARS UNCHANGED. tHE AREA IS NOT MARKED THERE WERE NO DEFINED BORDERS WHEN THIS RN CAME ON AT 1930. YOJANA DID NOT COMPLAIN OF PAIN, ONLY COLD. AREA OF BLOOD POOLING HAS NOT CHANGED IN AXILLARY AREA. SITE VIEWED WITH ONCOMING RN.
--- NOTE | 2021-02-12 17:19 | NUR ---
SHIFT SUMMARY PT AxOx4. PLEASANT AND COOPERATIVE WITH CARE. PT HAS HEMATOMA/SWELLING OVER NEWLY PLACED PACEMAKER LCW. ICE AND SAND BAGS APPLIED TO SITE FOR TREATMENT AND HOLDING BLOOD THINNERS x1 WEEK. PATIENT DENIES ANY PAIN AT SITE UNLESS PALPATING. BRUISING NOTED AROUND THE SITE WELL. PT HAD SHOWER TODAY. CARDIOLOGY DR CONSULTED THIS EVENING. PER PATIENT, DR SAID SHE SHOULD BE GOOD TO DISCHARGE TOMORROW IF SHE REMAINS STABLE. VITALS REVIEWED. PT CURRENTLY RESTING IN BED WITH CALL LIGHT IN REACH. DENIES ANY NEEDS AT THIS TIME.
--- NOTE | 2021-02-12 17:45 | NUR ---
Per admit trigger, I met with Sue to offer prayer and spiritual encouragement. She responded well to both. She has a moody jaylan and credits God for getting her through Covid. Sue expresses deep love for her family and feels well supported. Coal Yard Supervisor services will remain available.
[2021-02-13 04:34] LABS: BASOPHILS ABSOLUTE AUTO 0.03 K/mm3 (0.00-0.23); BASOPHILS PERCENT AUTO 0 % (0-2); EOSINOPHILS PERCENT AUTO 3 % (0-6); Hematocrit 41.8 % (33.0-51.0); Hemoglobin 13.3 g/dL (11.5-16.0); IMMATURE GRAN ABSOLUTE AUTO 0.02 K/mm3 (0.00-0.10); IMMATURE GRAN PERCENT AUTO 0 % (0-1); LYMPHOCYTES PERCENT AUTO 12 % (21-46); MONOCYTES ABSOLUTE AUTO 0.71 K/mm3 (0.16-1.47); MONOCYTES PERCENT AUTO 11 % (4-13); Mean Corpuscular HGB 26.8 pg (26.0-34.0); Mean Corpuscular HGB Conc 31.8 g/dL (31.5-36.5); Mean Corpuscular Volume 84 fL (80-100); NEUTROPHILS ABSOLUTE AUTO 4.95 K/mm3 (1.96-9.15); NEUTROPHILS PERCENT AUTO 74 % (41-73); Platelet Count 188 K/mm3 (150-400); RDW Coefficient Variation 16.2 % (11.7-14.2); RDW Standard Deviation 49.2 fL (35.1-46.3); Red Blood Cell Count 4.97 M/mm3 (3.80-5.20); White Blood Cell Count 6.71 K/mm3 (4.00-11.30)
[2021-02-13 04:50] LABS: International Normalized Ratio 1.16; Prothrombin Time Results 12.4 Sec (9.7-11.5)
[2021-02-13 05:22] LABS: Alanine Aminotransfer (ALT/SGP 40 U/L (12-78); Albumin, Blood 3.4 g/dL (3.4-5.0); Albumin/Globulin Ratio 1.1 (0.8-1.8); Alk Phos 67 U/L (50-136); Anion Gap 4 mmol/L (6-16); Aspartate Aminotrans (AST/SGOT 18 U/L (12-37); Bilirubin, Total 1.1 mg/dL (0.1-1.0); Blood Urea Nitrogen 16 mg/dL (8-24); Bun/Creatinine Ratio 19.6 (12.0-20.0); CO2, Blood 27 mmol/L (21-32); Chloride, Blood 104 mmol/L (98-108); Creatinine, Blood 0.82 mg/dL (0.40-1.00); Glomerular Filtration Rate >60 (60-); Glucose, Blood 137 mg/dL (70-99); Magnesium, Blood 2.2 mg/dL (1.6-2.4); Potassium, Blood 4.2 mmol/L (3.5-5.5); Sodium, Blood 135 mmol/L (136-145); Total Protein, Blood 6.4 g/dL (6.4-8.2)
--- NOTE | 2021-02-13 05:46 | NUR ---
SWELLING OVER PATIENTS PACEMAKER VERY SIGNIFICANTLY IMPROVED. PATIENT STATED SHE IS FEELS SAFER THAN IF SHE WOULD'VE LEFT YESTERDAY. MINIMAL COMPLAINTS OF DISCOMFORT, OVER CHEST WELL HEADACHE WERE TREATED TO A TOLERABLE LEVEL WITH TYLENOL.
[2021-02-13] MEDS ORDERED: C COMPLEX1000 M1 PO (12:40)
--- NOTE | 2021-02-13 13:26 | NUR ---
DISCHARGE DISCHARGE MEDICATIONS AND INSTRUCTIONS EXPLAINED TO PATIENT. SHE STATED UNDERSTANDING. PATIENT TO RESTART COUMADIN THIS EVENING. HEART CENTER TO CALL PATIENT AT HOME TO SCHEDULE FOLLOW UP WITH DR. VALDEZ. INCISION CARE REVIEWED. BELONGINGS WITH PATIENT. PATIENT TRANSFERED TO PRIVATE VEHICLE VIA WHEELCHAIR.
== END 2021-02-13 13:19 | disposition home or self-care (01) ==
LOC: ER 10:14 → MEDS 10:15
PROVIDERS: Emergency Medicine; Internal Medicine Cardiovascular Disease; ADMIT Family Medicine
DX: L76.32 Postprocedural hematoma of skin and subcutaneous tissue following other procedure (principal); Y83.8 Other surgical procedures as the cause of abnormal reaction of the patient, or of later complication, without mention of misadventure at the time of the procedure; I48.91 Unspecified atrial fibrillation; I48.92 Unspecified atrial flutter; I10 Essential (primary) hypertension; K21.9 Gastro-esophageal reflux disease without esophagitis; J44.9 Chronic obstructive pulmonary disease, unspecified; Z95.0 Presence of cardiac pacemaker; Z95.4 Presence of other heart-valve replacement; Z79.01 Long term (current) use of anticoagulants; Z87.891 Personal history of nicotine dependence; Z88.5 Allergy status to narcotic agent; Z88.8 Allergy status to other drugs, medicaments and biological substances; Z91.018 Allergy to other foods; Z91.048 Other nonmedicinal substance allergy status
CPT/HCPCS: 36415; 71045; 80053; 83735; 85025; 85610; 85730; 93280; 94640; 94760; 99284-25; A9270; G0378

== ENCOUNTER 2021-02-17 11:56 | Emergency (ER) | payer OTHER ==
[~2021-02-17] VITALS: Ht 172.7 cm; Wt 112.0 kg
[~2021-02-17 11:56] MED LIST changes: +C COMPLEX1000 M1 PO; +Carisoprodol350 MG PO; +ENOX120I SC; +ESTRADIOL; +KETO15TC TOP; +OLOPATADINE HC2.5 ML BOTHEYES; +PROAIR RESPICL90 MCG INH; +VOLTAREN ARTHRI20 GM TOP; +[UNRECOGNIZED DRUG - OTHER] PO
== END 2021-02-17 13:15 | disposition home or self-care (01) ==
LOC: ER 11:56
DX: Z48.01 Encounter for change or removal of surgical wound dressing (principal); I48.91 Unspecified atrial fibrillation; J44.9 Chronic obstructive pulmonary disease, unspecified; K21.9 Gastro-esophageal reflux disease without esophagitis; Z95.0 Presence of cardiac pacemaker; Z88.5 Allergy status to narcotic agent; Z91.09 Other allergy status, other than to drugs and biological substances; Z88.8 Allergy status to other drugs, medicaments and biological substances; Z91.018 Allergy to other foods; Z79.899 Other long term (current) drug therapy; Z79.01 Long term (current) use of anticoagulants; Z87.891 Personal history of nicotine dependence
CPT/HCPCS: 99282

== ENCOUNTER → 2021-03-11 | Outpatient (CLI) | payer OTHER | END | disposition home or self-care (01) | LOC: LAB SHORT 15:30 | DX: I48.91 Unspecified atrial fibrillation (principal); R30.0 Dysuria | CPT/HCPCS: 87077; 87086; 87186 ==

== ENCOUNTER → 2021-09-21 | Outpatient (CLI) | payer OTHER | LOC: LAB SHORT 08:11 | DX: D18.01 Hemangioma of skin and subcutaneous tissue (principal) | CPT/HCPCS: 88305 ==

== ENCOUNTER → 2021-10-12 | Outpatient (CLI) | payer OTHER | END | disposition home or self-care (01) | LOC: LAB 17:23 → LAB SHORT 17:23 | DX: R30.0 Dysuria (principal) | CPT/HCPCS: 87077; 87086; 87186 ==

== ENCOUNTER 2021-10-13 14:34 | Day surgery (SDC) | payer OTHER ==
[~2021-10-13] VITALS: Ht 172.7 cm; Wt 106.4 kg
== END 2021-10-13 17:13 | disposition home or self-care (01) ==
LOC: ORSCSDS 14:34
PROVIDERS: Anesthesiology
PROC: 3E0R33Z Introduction of Anti-inflammatory into Spinal Canal, Percutaneous Approach (ICD-10-PCS; principal; 2021-10-13 15:45)
DX: M54.16 Radiculopathy, lumbar region (principal); I48.91 Unspecified atrial fibrillation; Z95.0 Presence of cardiac pacemaker; K21.9 Gastro-esophageal reflux disease without esophagitis; E66.9 Obesity, unspecified; Z68.36 Body mass index [BMI] 36.0-36.9, adult; Z79.899 Other long term (current) drug therapy; Z79.01 Long term (current) use of anticoagulants
CPT/HCPCS: J1040

== ENCOUNTER → 2021-10-26 | Outpatient (CLI) | payer OTHER | END | disposition home or self-care (01) | LOC: LAB 17:52 → LAB SHORT 17:52 | DX: R30.0 Dysuria (principal) | CPT/HCPCS: 87077; 87086; 87186 ==

== ENCOUNTER 2021-11-05 13:22 | Emergency (ER) | payer OTHER ==
[~2021-11-05] VITALS: Ht 172.7 cm; Wt 9.1 kg
[~2021-11-05 13:22] MED LIST changes: +ALPR1; +AMLO5 PO; +DICLOFENAC SOD2.5 M2; +EVAMIST TD; +SENNA LAXATIVE8.6 MG PO
[2021-11-05 14:23] LABS: International Normalized Ratio 3.25; Prothrombin Time Results 31.6 Sec (9.7-11.5)
[2021-11-05 14:28] LABS: BASOPHILS ABSOLUTE AUTO 0.04 K/mm3 (0.00-0.23); BASOPHILS PERCENT AUTO 1 % (0-2); EOSINOPHILS ABSOLUTE AUTO 0.16 K/mm3 (0.00-0.68); EOSINOPHILS PERCENT AUTO 2 % (0-6); Hematocrit 42.6 % (33.0-51.0); Hemoglobin 14.1 g/dL (11.5-16.0); IMMATURE GRAN ABSOLUTE AUTO 0.02 K/mm3 (0.00-0.10); IMMATURE GRAN PERCENT AUTO 0 % (0-1); LYMPHOCYTES ABSOLUTE AUTO 0.86 K/mm3 (0.84-5.20); LYMPHOCYTES PERCENT AUTO 12 % (21-46); MONOCYTES ABSOLUTE AUTO 0.64 K/mm3 (0.16-1.47); MONOCYTES PERCENT AUTO 9 % (4-13); Mean Corpuscular HGB 27.8 pg (26.0-34.0); Mean Corpuscular HGB Conc 33.1 g/dL (31.5-36.5); Mean Corpuscular Volume 84 fL (80-100); Mean Platelet Volume 10.1 fL (9.1-12.4); NEUTROPHILS ABSOLUTE AUTO 5.27 K/mm3 (1.96-9.15); NEUTROPHILS PERCENT AUTO 75 % (41-73); Platelet Count 206 K/mm3 (150-400); RDW Coefficient Variation 16.4 % (11.7-14.2); RDW Standard Deviation 50.4 fL (35.1-46.3); Red Blood Cell Count 5.08 M/mm3 (3.80-5.20); White Blood Cell Count 6.99 K/mm3 (4.00-11.30)
[2021-11-05 14:38] LABS: Alanine Aminotransfer (ALT/SGP 43 U/L (12-78); Albumin, Blood 3.5 g/dL (3.4-5.0); Alk Phos 88 U/L (50-136); Anion Gap 5 mmol/L (6-16); Aspartate Aminotrans (AST/SGOT 30 U/L (12-37); Blood Urea Nitrogen 16 mg/dL (8-24); Bun/Creatinine Ratio 22.3 (12.0-20.0); CO2, Blood 27 mmol/L (21-32); Calcium, Blood 9.2 mg/dL (8.5-10.1); Chloride, Blood 104 mmol/L (98-108); Creatinine, Blood 0.72 mg/dL (0.40-1.00); Globulin, Blood 3.5 g/dL (2.2-4.0); Glomerular Filtration Rate >60 (60-); Glucose, Blood 127 mg/dL (70-99); Sodium, Blood 136 mmol/L (136-145)
[2021-11-05] MEDS ORDERED: CLIMARA1 EACH TOP (15:21)
[2021-11-05] MEDS ORDERED: JANTOVEN5 M2 PO (15:25)
[2021-11-05 15:35] LABS: Source, Urine Clean Catch
[2021-11-05 15:47] LABS: Appearance, Urine Clear (Clear); Bilirubin, Urine Neg (Neg); Blood, Urine Neg (Neg); Color, Urine Yellow (P-Yellow); Glucose Qualitative, Urine Neg (Neg); Ketones, Urine Neg (Neg); Leukocyte Esterase, Urine Neg (Neg); Nitrite, Urine Neg (Neg); Protein, Urine Neg (Neg); Urobilinogen, Urine NORM (Normal)
== END 2021-11-05 19:00 | disposition home or self-care (01) ==
LOC: ER 13:22
PROVIDERS: Physician Assistant
DX: R10.32 Left lower quadrant pain (principal); I10 Essential (primary) hypertension; J44.9 Chronic obstructive pulmonary disease, unspecified; K21.9 Gastro-esophageal reflux disease without esophagitis; Z79.899 Other long term (current) drug therapy; Z88.5 Allergy status to narcotic agent; Z88.8 Allergy status to other drugs, medicaments and biological substances
CPT/HCPCS: 36415; 74177; 80053; 81003; 83690; 85025; 85610; 99284-25; Q9967

== ENCOUNTER 2021-11-10 11:37 | Day surgery (SDC) | payer OTHER ==
[~2021-11-10] VITALS: Ht 172.7 cm; Wt 104.1 kg
[~2021-11-10 11:37] MED LIST changes: +CLIMARA1 EACH TOP; +JANTOVEN5 M2 PO
== END 2021-11-10 14:40 | disposition home or self-care (01) ==
LOC: ORSCSDS 11:37
PROVIDERS: Internal Medicine Gastroenterology
PROC: 0DB78ZX Excision of Stomach, Pylorus, Via Natural or Artificial Opening Endoscopic, Diagnostic (ICD-10-PCS; principal; 2021-11-10 13:15)
PROC: 0DBH8ZX Excision of Cecum, Via Natural or Artificial Opening Endoscopic, Diagnostic (ICD-10-PCS; principal; 2021-11-10 13:15)
PROC: 0DB48ZX Excision of Esophagogastric Junction, Via Natural or Artificial Opening Endoscopic, Diagnostic (ICD-10-PCS; principal; 2021-11-10 13:15)
DX: R10.32 Left lower quadrant pain (principal); Z86.010 Personal history of colon polyps; K21.9 Gastro-esophageal reflux disease without esophagitis; K22.70 Barrett's esophagus without dysplasia; K59.00 Constipation, unspecified; D12.0 Benign neoplasm of cecum; K31.7 Polyp of stomach and duodenum; K44.9 Diaphragmatic hernia without obstruction or gangrene; K57.30 Diverticulosis of large intestine without perforation or abscess without bleeding; K64.4 Residual hemorrhoidal skin tags; I10 Essential (primary) hypertension; I48.92 Unspecified atrial flutter; Z95.0 Presence of cardiac pacemaker; Z87.891 Personal history of nicotine dependence; J44.9 Chronic obstructive pulmonary disease, unspecified; Z79.84 Long term (current) use of oral hypoglycemic drugs; Z79.899 Other long term (current) drug therapy; E66.9 Obesity, unspecified; Z68.35 Body mass index [BMI] 35.0-35.9, adult
CPT/HCPCS: 88305; J2704; J7120

== ENCOUNTER → 2022-01-14 | Outpatient (CLI) | payer OTHER | END | disposition home or self-care (01) | LOC: LAB SHORT 17:04 → LAB 17:04 | DX: R35.0 Frequency of micturition (principal); R82.998 Other abnormal findings in urine | CPT/HCPCS: 87086 ==

== ENCOUNTER → 2022-01-25 | Outpatient (CLI) | payer OTHER | END | disposition home or self-care (01) | LOC: LAB SHORT 11:45 → LAB 11:45 | DX: R30.0 Dysuria (principal) | CPT/HCPCS: 87086 ==

== ENCOUNTER → 2022-01-29 | Outpatient (CLI) | payer OTHER ==
[2022-01-30 11:29] LABS: Candida species (DNA Probe) Positive (NEGATIVE); G. vaginalis (DNA Probe) Negative (NEGATIVE); T. vaginalis (DNA Probe) Negative (NEGATIVE)
== END | disposition home or self-care (01) ==
LOC: LAB SHORT 10:00
PROVIDERS: Family Medicine
DX: N76.1 Subacute and chronic vaginitis (principal)
CPT/HCPCS: 87070; 87205; 87480; 87510; 87660

== ENCOUNTER 2022-03-01 10:04 | Day surgery (SDC) | payer OTHER | END 2022-03-01 23:56 | disposition home or self-care (01) | LOC: ORSCMMR 10:04 → ORSCSDS 10:04 → ORSCMMR 10:06 → ORSCSDS 23:56 | DX: Z53.9 Procedure and treatment not carried out, unspecified reason (principal) ==

== ENCOUNTER 2022-03-08 09:52 | Day surgery (SDC) | payer OTHER ==
[~2022-03-08] VITALS: Ht 172.7 cm; Wt 108.2 kg
[2022-03-08] MEDS ORDERED: MEDR2.5 (10:24)
--- NOTE | 2022-03-08 14:57 | NUR ---
03/08/22 1453 Rodrigo Acosta CASE CANCELED PER DR. PORTER. PATIENT DID NOT STOP COUMADIN. PATIENT RESCHEDULED WITH FORGE TENDER.
== END 2022-03-08 10:50 | disposition home or self-care (01) ==
LOC: ORSCSDS 09:52
DX: M54.16 Radiculopathy, lumbar region (principal); Z53.9 Procedure and treatment not carried out, unspecified reason
CPT/HCPCS: J1040

== ENCOUNTER 2022-03-17 14:57 | Day surgery (SDC) | payer OTHER ==
[~2022-03-17] VITALS: Ht 172.7 cm; Wt 106.7 kg
[~2022-03-17 14:57] MED LIST changes: +MEDR2.5
== END 2022-03-17 15:51 | disposition home or self-care (01) ==
LOC: ORSCSDS 14:57
PROVIDERS: Anesthesiology
PROC: 3E0R33Z Introduction of Anti-inflammatory into Spinal Canal, Percutaneous Approach (ICD-10-PCS; principal; 2022-03-17 16:00)
DX: M51.16 Intervertebral disc disorders with radiculopathy, lumbar region (principal); M54.50 Low back pain, unspecified; I10 Essential (primary) hypertension; J45.909 Unspecified asthma, uncomplicated; I48.91 Unspecified atrial fibrillation; Z95.0 Presence of cardiac pacemaker; K21.9 Gastro-esophageal reflux disease without esophagitis; Z79.01 Long term (current) use of anticoagulants; Z79.899 Other long term (current) drug therapy
CPT/HCPCS: J1040

== ENCOUNTER → 2022-05-26 | Outpatient (CLI) | payer OTHER | END | disposition home or self-care (01) | LOC: LAB SHORT 14:14 → LAB 14:14 | DX: N90.89 Other specified noninflammatory disorders of vulva and perineum (principal); R30.0 Dysuria | CPT/HCPCS: 87070; 87077; 87086; 87186; 87205 ==

== ENCOUNTER → 2022-08-31 | Outpatient (CLI) | payer OTHER | END | disposition home or self-care (01) | LOC: LAB SHORT 15:05 → LAB 15:05 | DX: N30.01 Acute cystitis with hematuria (principal) | CPT/HCPCS: 87086 ==

== ENCOUNTER → 2022-09-07 | Outpatient (CLI) | payer OTHER | END | disposition home or self-care (01) | LOC: LAB 11:28 → LAB SHORT 11:28 | DX: R30.0 Dysuria (principal) | CPT/HCPCS: 87086 ==

== ENCOUNTER 2023-09-12 13:28 | Emergency (ER) | payer OTHER ==
[~2023-09-12] VITALS: Ht 172.7 cm; Wt 104.8 kg
[~2023-09-12 13:28] MED LIST changes: -VITAMIN D31000 UNI1 PO; +VITAMIN D5000 UNIT PO
[2023-09-12 14:39] LABS: BASOPHILS ABSOLUTE AUTO 0.04 K/mm3 (0.00-0.23); BASOPHILS PERCENT AUTO 1 % (0-2); EOSINOPHILS ABSOLUTE AUTO 0.04 K/mm3 (0.00-0.68); EOSINOPHILS PERCENT AUTO 1 % (0-6); Hematocrit 43.3 % (33.0-51.0); Hemoglobin 14.4 g/dL (11.5-16.0); IMMATURE GRAN ABSOLUTE AUTO 0.02 K/mm3 (0.00-0.10); IMMATURE GRAN PERCENT AUTO 0 % (0-1); LYMPHOCYTES ABSOLUTE AUTO 0.68 K/mm3 (0.84-5.20); LYMPHOCYTES PERCENT AUTO 10 % (21-46); MONOCYTES ABSOLUTE AUTO 0.67 K/mm3 (0.16-1.47); MONOCYTES PERCENT AUTO 10 % (4-13); Mean Corpuscular HGB 27.6 pg (26.0-34.0); Mean Corpuscular HGB Conc 33.3 g/dL (31.5-36.5); Mean Corpuscular Volume 83 fL (80-100); Mean Platelet Volume 10.9 fL (9.1-12.4); NEUTROPHILS ABSOLUTE AUTO 5.37 K/mm3 (1.96-9.15); NEUTROPHILS PERCENT AUTO 79 % (41-73); Platelet Count 220 K/mm3 (150-400); RDW Coefficient Variation 14.2 % (11.7-14.2); RDW Standard Deviation 43.3 fL (35.1-46.3); Red Blood Cell Count 5.21 M/mm3 (3.80-5.20); White Blood Cell Count 6.82 K/mm3 (4.00-11.30)
[2023-09-12 14:41] LABS: Source, Urine Clean Catch
[2023-09-12 14:45] LABS: Albumin, Blood 3.9 g/dL (3.4-5.0); Albumin/Globulin Ratio 1.1 (0.8-1.8); Bun/Creatinine Ratio 19.5 (12.0-20.0); Calcium, Blood 9.7 mg/dL (8.5-10.1); Creatinine, Blood 0.72 mg/dL (0.40-1.00); Globulin, Blood 3.4 g/dL (2.2-4.0); Potassium, Blood 3.7 mmol/L (3.5-5.5); Total Protein, Blood 7.3 g/dL (6.4-8.2)
[2023-09-12 14:50] LABS: Appearance, Urine Hazy (Clear); Blood, Urine Neg (Neg); Color, Urine Amber (P-Yellow); Glucose Qualitative, Urine Neg (Neg); Ketones, Urine Neg (Neg); Leukocyte Esterase, Urine 1+ (Neg); Nitrite, Urine Neg (Neg); Protein, Urine 2+ (Neg); Urobilinogen, Urine 3+ (Normal)
[2023-09-12] MEDS ORDERED: MEDR5 PO (14:59)
[2023-09-12] MEDS ORDERED: Estradiol1 MG PO (15:01)
[2023-09-12] MEDS ORDERED: DOCU100 PO (15:02)
[2023-09-12 15:11] LABS: Bilirubin, Urine 2+ (Neg)
[2023-09-12 15:12] LABS: Bacteria Few /hpf; Red Blood Cells, Urine 0-2 /hpf (0-2); Squamous Epithelial Cells Many /hpf (Few); Transitional Epithelial Cells Rare /hpf (0-Rare)
[2023-09-12] MEDS ORDERED: IBUP600 PO (16:36)
[2023-09-12] MEDS ORDERED: Ketoconazole15 GM TOP (16:39)
[2023-09-12] MEDS ORDERED: MERIBIN5 MG PO (16:41)
[2023-09-12] MEDS ORDERED: CALCIUM CITRATE PO (16:41)
[2023-09-12] MEDS ORDERED: ONDA4ODT MM (18:23)
[2023-09-12 19:05] VITALS: BP 134/78
== END 2023-09-12 19:10 | disposition home or self-care (01) ==
LOC: ER 13:28
PROVIDERS: Emergency Medicine
DX: R10.31 Right lower quadrant pain (principal); G89.29 Other chronic pain; R74.01 Elevation of levels of liver transaminase levels; K74.60 Unspecified cirrhosis of liver; I10 Essential (primary) hypertension; J44.9 Chronic obstructive pulmonary disease, unspecified; Z88.5 Allergy status to narcotic agent; Z91.09 Other allergy status, other than to drugs and biological substances; Z91.018 Allergy to other foods; Z88.8 Allergy status to other drugs, medicaments and biological substances; Z79.01 Long term (current) use of anticoagulants; Z95.2 Presence of prosthetic heart valve; Z96.641 Presence of right artificial hip joint
CPT/HCPCS: 74177; 80053; 81001; 83690; 85025; J0780; J2405; J3010; Q9967

== ENCOUNTER 2023-09-14 00:51 | Inpatient (IN) | payer OTHER ==
[~2023-09-14] VITALS: Ht 175.3 cm; Wt 104.4 kg
[~2023-09-14 00:51] MED LIST changes: +ALBU2.5V5 INH; -ALBU2.5V5 NEB; -AMLO5 PO; +Amlodipine Bes2.5 MG PO; +CALCIUM CITRATE PO; +DOCU100 PO; +Estradiol1 MG PO; +FLUTICASONE PRO12 G1 INH; -Flovent 220 Ora12 GM INH; +Ketoconazole15 GM TOP; +MERIBIN5 MG PO
[2023-09-14 02:24] LABS: BASOPHILS ABSOLUTE AUTO 0.03 K/mm3 (0.00-0.23); BASOPHILS PERCENT AUTO 0 % (0-2); EOSINOPHILS ABSOLUTE AUTO 0.02 K/mm3 (0.00-0.68); EOSINOPHILS PERCENT AUTO 0 % (0-6); Hematocrit 43.6 % (33.0-51.0); Hemoglobin 14.8 g/dL (11.5-16.0); IMMATURE GRAN ABSOLUTE AUTO 0.01 K/mm3 (0.00-0.10); IMMATURE GRAN PERCENT AUTO 0 % (0-1); LYMPHOCYTES ABSOLUTE AUTO 0.48 K/mm3 (0.84-5.20); LYMPHOCYTES PERCENT AUTO 5 % (21-46); MONOCYTES ABSOLUTE AUTO 1.01 K/mm3 (0.16-1.47); MONOCYTES PERCENT AUTO 10 % (4-13); Mean Corpuscular HGB 28.3 pg (26.0-34.0); Mean Corpuscular HGB Conc 33.9 g/dL (31.5-36.5); Mean Corpuscular Volume 83 fL (80-100); NEUTROPHILS ABSOLUTE AUTO 8.59 K/mm3 (1.96-9.15); NEUTROPHILS PERCENT AUTO 85 % (41-73); Platelet Count 208 K/mm3 (150-400); RDW Coefficient Variation 14.6 % (11.7-14.2); RDW Standard Deviation 44.5 fL (35.1-46.3); Red Blood Cell Count 5.23 M/mm3 (3.80-5.20); White Blood Cell Count 10.14 K/mm3 (4.00-11.30)
[2023-09-14 02:25] LABS: Alanine Aminotransfer (ALT/SGP 615 U/L (12-78); Albumin, Blood 3.8 g/dL (3.4-5.0); Albumin/Globulin Ratio 1.1 (0.8-1.8); Alk Phos 216 U/L (50-136); Anion Gap 7 mmol/L (6-16); Aspartate Aminotrans (AST/SGOT 356 U/L (12-37); Bilirubin, Total 5.3 mg/dL (0.1-1.0); Blood Urea Nitrogen 10 mg/dL (8-24); Bun/Creatinine Ratio 12.6 (12.0-20.0); CO2, Blood 28 mmol/L (21-32); Chloride, Blood 102 mmol/L (98-108); Creatinine, Blood 0.79 mg/dL (0.40-1.00); Globulin, Blood 3.6 g/dL (2.2-4.0); Glomerular Filtration Rate 80 (60-); Glucose, Blood 189 mg/dL (70-99); Potassium, Blood 3.7 mmol/L (3.5-5.5); Sodium, Blood 137 mmol/L (136-145); Total Protein, Blood 7.4 g/dL (6.4-8.2)
[2023-09-14 03:00] LABS: Source, Urine Clean Catch
[2023-09-14 03:07] LABS: Blood, Urine 1+ (Neg); Glucose Qualitative, Urine Neg (Neg); Ketones, Urine Neg (Neg); Leukocyte Esterase, Urine 1+ (Neg); Nitrite, Urine Neg (Neg); Protein, Urine 2+ (Neg); Specific Gravity, Urine 1.005 (1.003-1.022); Urobilinogen, Urine 2+ (Normal)
[2023-09-14 03:17] LABS: Appearance, Urine Clear (Clear); Bilirubin, Urine 1+ (Neg); Color, Urine Yellow (P-Yellow)
[2023-09-14 03:18] LABS: Bacteria Few /hpf; Red Blood Cells, Urine 0-2 /hpf (0-2); Squamous Epithelial Cells Mod /hpf (Few); White Blood Cells, Urine 0-2 /hpf (0-5)
[2023-09-14 04:15] LABS: HDL Cholesterol 76 mg/dL (>39)
[2023-09-14 04:26] LABS: CHOL/HDL RATIO 2.7; Cholesterol 203 mg/dL (50-200); LDL/HDL RATIO 1.5; Low Density Lipoprotein Chol 113 mg/dL (0-110); Triglycerides 68 mg/dL (30-160); Very Low Density Lipoprot Chol 13 mg/dL (6-32)
[2023-09-14] MEDS ORDERED: ANORO ELLIPTA1 EAC1 INH (04:46)
[2023-09-14] MEDS ORDERED: PANTOPRAZOLE SO2010 PO (04:47)
[2023-09-14 05:06] VITALS: BP 144/86
[2023-09-14 07:48] VITALS: BP 160/87
[2023-09-14 08:37] LABS: BASOPHILS ABSOLUTE AUTO 0.02 K/mm3 (0.00-0.23); BASOPHILS PERCENT AUTO 0 % (0-2); EOSINOPHILS ABSOLUTE AUTO 0.01 K/mm3 (0.00-0.68); EOSINOPHILS PERCENT AUTO 0 % (0-6); Hematocrit 43.6 % (33.0-51.0); Hemoglobin 14.6 g/dL (11.5-16.0); IMMATURE GRAN ABSOLUTE AUTO 0.03 K/mm3 (0.00-0.10); IMMATURE GRAN PERCENT AUTO 0 % (0-1); LYMPHOCYTES ABSOLUTE AUTO 0.72 K/mm3 (0.84-5.20); LYMPHOCYTES PERCENT AUTO 7 % (21-46); MONOCYTES ABSOLUTE AUTO 1.03 K/mm3 (0.16-1.47); MONOCYTES PERCENT AUTO 10 % (4-13); Mean Corpuscular HGB 28.1 pg (26.0-34.0); Mean Corpuscular HGB Conc 33.5 g/dL (31.5-36.5); Mean Corpuscular Volume 84 fL (80-100); NEUTROPHILS PERCENT AUTO 82 % (41-73); Platelet Count 212 K/mm3 (150-400); RDW Coefficient Variation 14.7 % (11.7-14.2); RDW Standard Deviation 45.2 fL (35.1-46.3); Red Blood Cell Count 5.19 M/mm3 (3.80-5.20); White Blood Cell Count 10.21 K/mm3 (4.00-11.30)
[2023-09-14 08:49] LABS: International Normalized Ratio 3.11; Prothrombin Time Results 30.6 Sec (9.7-11.5)
[2023-09-14 09:14] LABS: Albumin, Blood 3.7 g/dL (3.4-5.0); Bilirubin, Total 5.8 mg/dL (0.1-1.0); Bun/Creatinine Ratio 12.6 (12.0-20.0); Calcium, Blood 9.1 mg/dL (8.5-10.1); Creatinine, Blood 0.72 mg/dL (0.40-1.00); Globulin, Blood 3.6 g/dL (2.2-4.0); Potassium, Blood 3.8 mmol/L (3.5-5.5); Total Protein, Blood 7.3 g/dL (6.4-8.2)
[2023-09-14 15:58] LABS: Anti-Xa UFH, PHA Monitoring 0.23 IU/mL
[2023-09-14 19:22] VITALS: BP 137/78
--- NOTE | 2023-09-14 20:20 | NUR ---
SHIFT SUMMARY PATIENT MEDICATD FOR NAUSEA AND PAIN TODAY, DRY HEAVES FIRS THING THIS AM. DR Ava TONY MADE AWARE AND ORDERED COMPAZINE, WHICH REDUCED NAUSE SIGNIFICANTLY. TOLERATING ICE CHIPS AND PAIN UNDER CONTROL AND NAUSEA GONE BY END OF SHIFT SHE IS UP AD HOSEA TO [facility] CANE. BED IN LOW POSITION. CALL LIGHT IN REACH. SHE IS ABLE TO MAKE NEEDS KNOWN.
[2023-09-15 03:00] VITALS: BP 134/78
--- NOTE | 2023-09-15 04:26 | NUR ---
SHIFT SUMMARY: PT AWAKE OFF AND ON THROUGH THE NIGHT. PT IV RUNNING AT 75ML/HR. PT COMPLAINED OF HEADACHE BUT DENIED PAIN MEDICATIONS. PT REQUESTED TYLENOL PO BUT SHE WAS REMINDED SHE IS NPO CURRENTLY. PT ATE SOME ICE CHIPS THROUGH NIGHT AND STATED HER ABDOMINAL PAIN HAS GREATLY IMPROVED. SHE IS PASSING GAS BUT NO BM X 3 DAYS PER PT REPORT. PT WILL BE SPEAKING WITH PHYSICIAN TODAY ABOUT POSSIBLY ADVANCING HER DIET AND BEING ABLE TO TAKE ORAL MEDS. PT EXPRESSED FEAR OVER TAKING FENTANYL FOR SOMETHING LIKE A HEADACHE. SHE ALSO DENIED THERAPEUTIC MEASURES SUCH ICE OR HEAT TO HELP RELIEVE HER HEADACHE. PT VERY TALKATIVE WHEN SHE WAS AWAKE. PT IS WAITING FOR A FACILITY TO BE ABLE TO SCHEDULE HER FOR AN MRI DUE TO HER HAVING A PACEMAKER. 09/15/23 DAVID MEREDITH RN
[2023-09-15 06:08] LABS: BASOPHILS ABSOLUTE AUTO 0.03 K/mm3 (0.00-0.23); BASOPHILS PERCENT AUTO 0 % (0-2); EOSINOPHILS ABSOLUTE AUTO 0.03 K/mm3 (0.00-0.68); EOSINOPHILS PERCENT AUTO 0 % (0-6); Hematocrit 40.4 % (33.0-51.0); Hemoglobin 13.3 g/dL (11.5-16.0); IMMATURE GRAN ABSOLUTE AUTO 0.02 K/mm3 (0.00-0.10); IMMATURE GRAN PERCENT AUTO 0 % (0-1); LYMPHOCYTES ABSOLUTE AUTO 0.61 K/mm3 (0.84-5.20); LYMPHOCYTES PERCENT AUTO 7 % (21-46); MONOCYTES PERCENT AUTO 9 % (4-13); Mean Corpuscular HGB 28.1 pg (26.0-34.0); Mean Corpuscular HGB Conc 32.9 g/dL (31.5-36.5); Mean Corpuscular Volume 85 fL (80-100); NEUTROPHILS ABSOLUTE AUTO 7.34 K/mm3 (1.96-9.15); NEUTROPHILS PERCENT AUTO 83 % (41-73); Platelet Count 166 K/mm3 (150-400); RDW Coefficient Variation 14.8 % (11.7-14.2); RDW Standard Deviation 46.5 fL (35.1-46.3); Red Blood Cell Count 4.74 M/mm3 (3.80-5.20); White Blood Cell Count 8.83 K/mm3 (4.00-11.30)
[2023-09-15 06:24] LABS: Anti-Xa UFH, PHA Monitoring <0.10 IU/mL; International Normalized Ratio 3.56; Prothrombin Time Results 34.8 Sec (9.7-11.5)
[2023-09-15 06:36] LABS: Albumin, Blood 3.1 g/dL (3.4-5.0); Albumin/Globulin Ratio 0.9 (0.8-1.8); Bilirubin, Total 3.9 mg/dL (0.1-1.0); Bun/Creatinine Ratio 14.8 (12.0-20.0); Calcium, Blood 8.8 mg/dL (8.5-10.1); Creatinine, Blood 0.68 mg/dL (0.40-1.00); Globulin, Blood 3.3 g/dL (2.2-4.0); Potassium, Blood 3.5 mmol/L (3.5-5.5); Total Protein, Blood 6.4 g/dL (6.4-8.2)
[2023-09-15 07:16] VITALS: BP 155/78
[2023-09-15 16:16] VITALS: BP 153/85
--- NOTE | 2023-09-15 16:16 | NUR ---
Upon receiving a referral for spiritual care, I visited the patient. She speaks highly of her visit with our RESEARCH PSYCHOLOGIST James. She shares about her possible transfer to another hospital because of a need for a higher level of medical equipment. She talks about her Hinduism jaylan and how it inspires her and strenghthens her during challenging situations. I provide therapeutic listneing, pastoral consumer credit counselor and prayer. Patient responded well and showed signs of increased peace.
[2023-09-15 19:21] VITALS: BP 153/85
[2023-09-15 19:33] VITALS: BP 148/76
== END 2023-09-15 20:30 | disposition short-term general hospital (02) | DRG 439 ==
LOC: ER 00:51 → MEDS 03:53
PROVIDERS: Emergency Medicine; Internal Medicine; ADMIT Internal Medicine
DX: K85.90 Acute pancreatitis without necrosis or infection, unspecified (principal); I48.20 Chronic atrial fibrillation, unspecified; I48.92 Unspecified atrial flutter; E86.0 Dehydration; K21.9 Gastro-esophageal reflux disease without esophagitis; I48.91 Unspecified atrial fibrillation; J44.9 Chronic obstructive pulmonary disease, unspecified; K74.60 Unspecified cirrhosis of liver; K83.8 Other specified diseases of biliary tract; I10 Essential (primary) hypertension; Z88.5 Allergy status to narcotic agent; Z88.8 Allergy status to other drugs, medicaments and biological substances; Z91.018 Allergy to other foods; Z91.048 Other nonmedicinal substance allergy status; Z79.01 Long term (current) use of anticoagulants; Z79.899 Other long term (current) drug therapy; Z79.811 Long term (current) use of aromatase inhibitors; Z95.0 Presence of cardiac pacemaker; Z90.10 Acquired absence of unspecified breast and nipple; Z96.641 Presence of right artificial hip joint; Z95.2 Presence of prosthetic heart valve; Z90.49 Acquired absence of other specified parts of digestive tract; Z98.890 Other specified postprocedural states; Z86.79 Personal history of other diseases of the circulatory system; R10.31 Right lower quadrant pain; G89.29 Other chronic pain; R74.01 Elevation of levels of liver transaminase levels; Z91.09 Other allergy status, other than to drugs and biological substances
CPT/HCPCS: 36415; 74177; 80053; 80061; 81001; 83605; 83690; 83880; 85025; 85520; 85610; 85730; 87086; 93005; 93010; 94640; 94664; 94760; 96361; 96374-59; 96375; 96376; 99284-25; 99285-25; A9270; C9113; J0780; J1650; J2405; J2543; J3010; J7030; J7120; Q9967

== ENCOUNTER → 2023-12-12 | Outpatient (CLI) | payer OTHER ==
[~2023-12-12] MED LIST changes: +ANORO ELLIPTA1 EAC1 INH; +BENZ100A PO; +ENOX100I; +PANTOPRAZOLE SO2010 PO
== END ==
LOC: LAB 14:39 → LAB SHORT 14:39
DX: L01.02 Bockhart's impetigo (principal)
CPT/HCPCS: 88305

== ENCOUNTER 2024-07-27 05:57 | Inpatient (IN) | payer OTHER ==
[~2024-07-27] VITALS: Ht 172.7 cm; Wt 103.6 kg
[2024-07-27] VITALS (14 sets, daily range): BP systolic 103–151; BP diastolic 58–85
[~2024-07-27 05:57] MED LIST changes: +ASCORBIC ACID500 MG PO; +MAGCIT300 PO
[2024-07-27] MEDS ORDERED: CeFAZolin Sodium 2,000 MG in NS 100 ML IV SCH ×2 (06:15→16:00)
[2024-07-27] MEDS ORDERED: Lactated Ringer's 1,000 ML IV SCH ×2 (06:15→10:10)
[2024-07-27] MEDS ORDERED: Tranexamic Acid 1,000 MG in NS 100 ML IV SCH (06:15)
[2024-07-27] MEDS ORDERED: OxyCODONE HCL 10 MG TABCR PO SCH (06:15)
[2024-07-27] MEDS ORDERED: Chlorhexidine Mouth Care 15 ML UDC MT SCH (06:15)
[2024-07-27] MEDS ORDERED: Acetaminophen 500 MG Tab PO SCH ×2 (06:15→16:00)
[2024-07-27] MEDS ORDERED: Ropivacaine 0.5% HCl/Pf 123.125 MG,EPINEPHrine HCL 0.25 MG,Ketorolac Tromethamine 15 MG... INFIL SCH (06:20)
[2024-07-27] MEDS ORDERED: CeFAZolin Sodium 2,000 MG VIAL ONE (06:47)
--- NOTE | 2024-07-27 07:19 | NUR ---
Patient reports completing Chlorhexadine shower X2 prior to admission to hospital. Patient confirms NPO status and agrees with scheduled surgery. Patient reports completing Chlorhexadine shower X2 prior to admission to hospital. Pre-Op teaching done. Pt verbalizes understanding. Lungs clear T/O to Auscultation.
--- NOTE | 2024-07-27 07:44 | NUR ---
4327 TIME OUT FOR INTERSCALING BLOCK WITH ANESTHESIA PROVIDER DR. EDMOND
[2024-07-27] MEDS ORDERED: Docusate Sodium 100 MG Cap PO PRN (10:00)
[2024-07-27] MEDS ORDERED: Dicyclomine HCL 10 MG Capsule PO PRN (10:00)
[2024-07-27] MEDS ORDERED: Albuterol 2.5 MG/3 ML VIAL INH SCH ×2 (10:05→11:05)
[2024-07-27] MEDS ORDERED: Magnesium Hydroxide Conc 10 ML UDC PO PRN (10:10)
[2024-07-27] MEDS ORDERED: FLU VACC TS2024-25(6MOS UP)/PF 45 MCG/0.5 ML SYRINGE IM SCH (10:15)
[2024-07-27] MEDS ORDERED: Prochlorperazine Edisylate 10 mg Vial IV PRN (10:15)
[2024-07-27] MEDS ORDERED: DiphenhydrAMINE HCL 25 MG Cap PO PRN (10:15)
[2024-07-27] MEDS ORDERED: Bisacodyl 10 MG Supp PR PRN (10:15)
[2024-07-27] MEDS ORDERED: Promethazine HCl 25 MG Tab PO PRN (10:15)
[2024-07-27] MEDS ORDERED: HYDROcodone 5-APAP 325 TAB PO PRN (10:15)
[2024-07-27] MEDS ORDERED: Ondansetron HCl 2 MG / ML 2ML Vial IV PRN (10:20)
[2024-07-27] MEDS ORDERED: Metoclopramide HCl 5MG / ML 2ML Vial IV PRN (10:20)
--- NOTE | 2024-07-27 10:54 | NUR ---
NOTICED UPON DISCHARGE FROM PACU THAT IV INFILTRATED, REPLACING NOW BEFORE TRANSFER TO SURGICAL FLOOR
[2024-07-27] MEDS ORDERED: Albuterol HFA200 ACT/6.7 GM INH INH PRN (11:00)
[2024-07-27] MEDS ORDERED: ANORO ELLIPTA INHALER INH SCH (11:05)
[2024-07-27] MEDS ORDERED: Loratadine 10 MG Tab PO PRN (11:05)
--- NOTE | 2024-07-27 11:10 | NUR ---
ARRIVAL NOTE PT ARRIVES FROM PACU ALERT BUT VERY SLEEPY. PT IS TALKING IN WHISPERS. PT C/O 5/10 PAIN A HEADACHE. PT CANNOT MOVE FINGERS ON R SIDE OR SHOULDER. HAS SOME BURNING PAIN IN R HAND. PT ALSO IN SHOULDER IMMOBILIZER. PT GIVEN ICE WATER AND SNACKS. VITALS STABLE AT THIS TIME. HOB ELEVATED. CALL LIGHT IN REACH.
[2024-07-27] MEDS ORDERED: Ketorolac Tromethamine 15mg Vial IV SCH (12:00)
[2024-07-27] MEDS ORDERED: Torsemide 20 MG TAB PO SCH (18:00)
[2024-07-27] MEDS ORDERED: Warfarin Sodium 5 MG Tab PO SCH (18:00)
--- NOTE | 2024-07-27 18:15 | NUR ---
SHIFT SUMMARY PT MUCH MORE ALERT NOW AND IS AT BASELINE. PT STILL HAVING MINIMAL SENSATION AND LITTLE TO NO MOVEMENT IN FINGERS ON R ARM, WHICH IS IN A SPLINT. NO PAIN, NAUSEA OR VOMITING. PT ERVIN PO INTAKE. PT REQUIRING TO TAKE SMALL BITES SHE HAS COUGHED AFTER DRINKING WATER AND EATING BUT WAS ABLE TO CLEAR THROAT W/O ISSUE. PT WORKED WITH PHYSICAL THERAPY AND OCCUPATIONAL THERAPY TODAY. NO NOTABLE ISSUES FOUND.
[2024-07-27] MEDS ORDERED: Docusate Sodium 100 MG Cap PO SCH (21:00)
[2024-07-27] MEDS ORDERED: Calcium Citrate 950 MG Tab PO SCH (21:00)
[2024-07-28 00:09] VITALS: BP 167/85
[2024-07-28 04:31] VITALS: BP 129/67
--- NOTE | 2024-07-28 04:37 | NUR ---
SHIFT SUMMARY YOJANA WAS ALERT AND FULLY ORIENTED ON ASSESMENT. PT AQUACEL TO R SHOULDER IS C/D/I. PT WAS ANXIOUS T/O FIRST HALF OF SHIFT BUT WAS ABLE TO CALM DOWN AND RELAX. PT NOTES THAT SHE IS VERY ITCHY AROUND HER DRESSING AND THAT SHE HAS AN ALLERGY TO ADHESIVES. BENADRYL PROVIDED. PT UP TO BR FREQUENTLY FOR VOIDS. CIRCULATION TO HAND INTACT, SENSATION AND MOBILITY RETURNING SLOWLY POST NERVE BLOCK. NO ACUTE EVENTS TONIGHT NO NOTED CHANGES TO PT CONDITION.
[2024-07-28 05:07] LABS: BASOPHILS ABSOLUTE AUTO 0.02 K/mm3 (0.00-0.23); BASOPHILS PERCENT AUTO 0 % (0-2); EOSINOPHILS ABSOLUTE AUTO 0.02 K/mm3 (0.00-0.68); EOSINOPHILS PERCENT AUTO 0 % (0-6); Hematocrit 39.4 % (33.0-51.0); IMMATURE GRAN ABSOLUTE AUTO 0.05 K/mm3 (0.00-0.10); IMMATURE GRAN PERCENT AUTO 0 % (0-1); LYMPHOCYTES PERCENT AUTO 7 % (21-46); MONOCYTES ABSOLUTE AUTO 1.21 K/mm3 (0.16-1.47); MONOCYTES PERCENT AUTO 10 % (4-13); Mean Corpuscular Volume 88 fL (80-100); Mean Platelet Volume 10.7 fL (9.1-12.4); NEUTROPHILS ABSOLUTE AUTO 9.97 K/mm3 (1.96-9.15); NEUTROPHILS PERCENT AUTO 82 % (41-73); Platelet Count 183 K/mm3 (150-400); RDW Coefficient Variation 14.8 % (11.7-14.2); RDW Standard Deviation 47.8 fL (35.1-46.3); Red Blood Cell Count 4.49 M/mm3 (3.80-5.20); White Blood Cell Count 12.17 K/mm3 (4.00-11.30)
[2024-07-28 05:25] LABS: International Normalized Ratio 1.05; Prothrombin Time Results 11.2 Sec (9.7-11.5)
[2024-07-28 05:28] LABS: Bun/Creatinine Ratio 23.8 (12.0-20.0); Calcium, Blood 9.2 mg/dL (8.5-10.1); Creatinine, Blood 1.01 mg/dL (0.40-1.00); Potassium, Blood 4.1 mmol/L (3.5-5.5)
[2024-07-28] MEDS ORDERED: Pantoprazole Sodium 40 MG Tab PO SCH (06:00)
[2024-07-28 07:23] VITALS: BP 126/64
[2024-07-28] MEDS ORDERED: Biotin 5 MG Cap PO SCH (09:00)
[2024-07-28] MEDS ORDERED: Estradiol 1 MG Tab PO SCH (09:00)
[2024-07-28] MEDS ORDERED: Enoxaparin 100 MG/ML 1ML SYR SC SCH (09:00)
[2024-07-28] MEDS ORDERED: Lisinopril 5 MG Tab PO SCH (09:00)
[2024-07-28] MEDS ORDERED: Ascorbic Acid 500 MG Tab PO SCH (09:00)
[2024-07-28] MEDS ORDERED: Multivitamins 1 Tab PO SCH (09:00)
[2024-07-28] MEDS ORDERED: Magnesium Citrate 300 ML BTL PO SCH (09:00)
[2024-07-28] MEDS ORDERED: AmLODIPine Besylate 5 MG Tab PO SCH (09:00)
[2024-07-28] MEDS ORDERED: Spironolactone 25 MG Tab PO SCH (09:00)
[2024-07-28] MEDS ORDERED: Cholecalciferol 1000 Unit Tablet (=25MCG) PO SCH (09:00)
[2024-07-28 15:39] VITALS: BP 98/60
--- NOTE | 2024-07-28 17:45 | NUR ---
DR. DAWSON ROUNDED ON PT.
[2024-07-28] MEDS ORDERED: Warfarin Sodium 5 MG Tab PO SCH (18:00)
--- NOTE | 2024-07-28 20:01 | NUR ---
SHIFT SUMMARY PT IS POD#1 FROM R TSA WITH DR. ROBLES. PAIN HAS BEEN MANAGED WITH PO PAIN MEDICATION THIS SHIFT. PT IS A 1 ASSIST WHEN OOB. PT HAS BEEN ANXIOUS TODAY ABOUT HER CARE AT HOME, SHE STATES SHE WAS NOT PREPARED FOR THE LEVEL OF CARE SHE WOULD NEED AFTER SURGERY. PT REPORTS SHE HAS A CAREGIVER 18 HOURS PER WEEK WHO WILL BE ABLE TO HELP ON TUESDAY BUT NO OTHER ASSISTANCE UNTIL THEN. SNF IS RECOMMENDED FOR PT BUT SHE IS DECLINING R/T A PREVIOUS BAD EXPERIENCE. PT USES HER CALL LIGHT. VSS, SHE IS TOLERATING PO, VOIDING. BEDSIDE REPORT GIVEN TO PARISH GILBERT.
[2024-07-28 20:10] VITALS: BP 106/60
[2024-07-29 02:57] VITALS: BP 106/93
--- NOTE | 2024-07-29 04:22 | NUR ---
SHIFT SUMMARY POD2 R RTS W/AQUACEL PLACEMENT. DRESSING REMAINS C/D/I. SENSATION AND CIRCULATION REMAIN INTACT IN RUE. PT HAS BEEN ABLE TO USE HER HAND W/MINIMAL DICOMFORT, THE SLING REMAINS IN PLACE. VSS. PT HAS SLEPT WELL T/O THE NIGHT. THE PT HAS BEEN MEDICATED FOR PAIN W/ 2 NORCO W/GOOD RESULTS, CRYO REMAINS IN PLACE. PT HAS BEEN AMBULATING W/ A SBA TO THE BATHROOM. VOIDING W/O DIFFICULTY. TOLLERATING PO INTAKE W/O N/V. OVERALL, NO ACUTE EVENTS NOTED. PLAN TO DECIDE SNF VS HOME W/ HH. THE PATIENT IS CURRENTLY SLEEPING, IN NO DISTRESS, CALL LIGHT IN REACH
[2024-07-29 06:00] LABS: International Normalized Ratio 1.3; Prothrombin Time Results 13.6 Sec (9.7-11.5)
[2024-07-29 07:52] VITALS: BP 135/77
[2024-07-29] MEDS ORDERED: Polyethylene Glycol 3350 17 gm PO SCH (09:00)
--- NOTE | 2024-07-29 12:54 | NUR ---
DR. EUNICE RESENDEZ.
[2024-07-29 14:57] VITALS: BP 101/64
[2024-07-29] MEDS ORDERED: Warfarin Sodium 4 MG Tab PO SCH (18:00)
[2024-07-29] MEDS ORDERED: Warfarin Sodium 5 MG Tab PO SCH (18:00)
[2024-07-29 19:47] VITALS: BP 132/53
--- NOTE | 2024-07-29 20:24 | NUR ---
SHIFT SUMMARY PT IS POD#2 FROM R TSA WITH DR. ROBLES. SNF RECOMMENDED BUT PT DECLINED, SHE DOES NOT HAVE ASSISTANCE UNTIL TOMORROW. PT EDUCATED THAT SHE WILL DISCHARGE TOMORROW MORNING. PAIN MANAGED WITH PO PAIN MEDICATION. PT IS A SBA WHEN OOB. SHE REQUIRES ASSISTANCE WITH ADLs R/T SURGERY. PT STATES HER CAREGIVER WILL BE AVALIABLE TO HELP HER TOMORROW. BEDSIDE REPORT GIVEN TO PARISH GILBERT.
[2024-07-29] MEDS ORDERED: AmLODIPine Besylate 5 MG Tab PO SCH (21:00)
--- NOTE | 2024-07-30 04:54 | NUR ---
SHIFT SUMMARY POD3 R RTS. LEENA REMAINS C/D/I. SLING IN PLACE. VSS. PT SLEPT ON AND OFF T.O THE NIGHT. MEDICATED FOR PAIN WITH NORCO. PT AMBULATING TO THE BATHROOM W/SBA. VOIDING W/O DIFFICULTY, PASSING FLATTUS. TOLLERATING PO INTAKE W/O N/V. OVERALL, NO ACUTE EVENTS NOTED. ANTICIPATED DISCHARGE THIS AM.
[2024-07-30 05:05] VITALS: BP 137/78
[2024-07-30 06:34] LABS: International Normalized Ratio 1.37; Prothrombin Time Results 14.3 Sec (9.7-11.5)
[2024-07-30 07:23] VITALS: BP 129/78
--- NOTE | 2024-07-30 12:38 | NUR ---
DISCHARGE SUMMARY POD3 R REVERSE TSA, A/OX4, VSS, TOLERATING PO, PAIN WELL MANAGED, AMBULATING WITH SBA. PROVIDED HER WITH DC INSTRUCTIONS, PT AND DRAWING IN MACHINE TENDER STATE NO QUESTIONS AT THIS TIME, ESCORTED OUT VIA WC TO PRIVATE AUTO TO GO HOME.
[2024-07-30] MEDS ORDERED: Warfarin Sodium 5 MG Tab PO SCH (18:00)
== END 2024-07-30 11:50 | disposition home health service (06) | DRG 483 ==
LOC: ORSCMMR 05:57 → SURS 07:29 → ORD 07:30 → ORSCMMR 07:30 → SURS 11:01
PROVIDERS: ADMIT Orthopaedic Surgery
PROC: 0RRJ00Z Replacement of Right Shoulder Joint with Reverse Ball and Socket Synthetic Substitute, Open Approach (ICD-10-PCS; principal; 2024-07-27 07:30)
DX: M19.011 Primary osteoarthritis, right shoulder (principal); F33.3 Major depressive disorder, recurrent, severe with psychotic symptoms; I48.91 Unspecified atrial fibrillation; J44.9 Chronic obstructive pulmonary disease, unspecified; Z96.641 Presence of right artificial hip joint; K74.60 Unspecified cirrhosis of liver; G47.33 Obstructive sleep apnea (adult) (pediatric); Z88.5 Allergy status to narcotic agent; Z91.040 Latex allergy status; Z88.8 Allergy status to other drugs, medicaments and biological substances; Z79.01 Long term (current) use of anticoagulants; Z87.891 Personal history of nicotine dependence; Z01.812 Encounter for preprocedural laboratory examination; E87.6 Hypokalemia; F41.1 Generalized anxiety disorder; Z95.2 Presence of prosthetic heart valve
CPT/HCPCS: 36415; 73030; 80048; 85025; 85610; 85730; 94640; 94664; 94760; 97110; 97116; 97162; 97166; 97530; 97535; A9270; C1713; C1776; J0171; J0690; J0735; J1650; J1885; J2795; J7120

== ENCOUNTER 2024-11-21 09:20 | Day surgery (SDC) | payer OTHER ==
[~2024-11-21] VITALS: Ht 172.7 cm; Wt 99.6 kg
[~2024-11-21 09:20] MED LIST changes: +Lactated Ringer's 1,000 ML IV ONE; +propofoL 50 ML IV ONE
[2024-11-21] MEDS ORDERED: ATEN25 (09:54)
[2024-11-21] MEDS ORDERED: 1/2 NS 250ml250 ML (09:54)
[2024-11-21] MEDS ORDERED: Brovana15 MCG/2 M (09:54)
[2024-11-21] MEDS ORDERED: FARXIGA10 MG (09:54)
[2024-11-21] MEDS ORDERED: Lactated Ringer's 1,000 ML IV ONE (10:13)
[2024-11-21 11:51] VITALS: BP 128/73
--- NOTE | 2024-11-21 11:52 | NUR ---
11/21/24 1152 Colt Quiroga PT REPORTED 10/10 [place] EYE PAIN UPON WAKING. EYES WERE FLUSHED WITH STERILE WATER, PER VO FROM DR. TABARES. PT REPORTED PAIN 8/10 BUT TOLERABLE AFTER FLUSHING. NO REDNESS UPON D/C. SHE EXPRESSED READINESS TO RETURN HOME AND USE OTC EYE DROPS.
== END 2024-11-21 11:50 | disposition home or self-care (01) ==
LOC: ORSCSDS 09:20
PROVIDERS: Internal Medicine Gastroenterology
PROC: 0DBP8ZX Excision of Rectum, Via Natural or Artificial Opening Endoscopic, Diagnostic (ICD-10-PCS; principal; 2024-11-21 10:45)
DX: Z12.11 Encounter for screening for malignant neoplasm of colon (principal); Z86.0101 Personal history of adenomatous and serrated colon polyps; K62.1 Rectal polyp; K64.4 Residual hemorrhoidal skin tags; K57.30 Diverticulosis of large intestine without perforation or abscess without bleeding; I48.92 Unspecified atrial flutter; G47.33 Obstructive sleep apnea (adult) (pediatric); K21.9 Gastro-esophageal reflux disease without esophagitis; K74.60 Unspecified cirrhosis of liver; I10 Essential (primary) hypertension; E66.9 Obesity, unspecified; Z68.33 Body mass index [BMI] 33.0-33.9, adult; Z79.899 Other long term (current) drug therapy
CPT/HCPCS: 82947; 88305; J2704; J7120

== ENCOUNTER → 2025-04-29 | Outpatient (CLI) | payer OTHER ==
[~2025-04-29] MED LIST changes: +1/2 NS 250ml250 ML; +ARNUITY ELLIP200 MCG INH; +ARTHRITIS PAIN150 GM TOP; +ATEN100 PO; +Brovana15 MCG/2 M; +CALCIUM CITRAT250 MG PO; -CALCIUM CITRATE PO; -ENOX100I; +FARXIGA10 MG PO; +IBUP200 PO; -Lactated Ringer's 1,000 ML IV ONE; -MAGCIT300 PO; +MAGNESIUM CITR100 MG PO; +NYAMYC15 G1 TOP; +ONDA4 PO; +PREG50 PO; +ROLAIDS ADV 101 EACH PO; +WARF4; +ZYRTEC10 M4 PO; -propofoL 50 ML IV ONE
[2025-04-29 13:32] LABS: BASOPHILS ABSOLUTE AUTO 0.04 K/mm3 (0.00-0.23); BASOPHILS PERCENT AUTO 1 % (0-2); EOSINOPHILS ABSOLUTE AUTO 0.11 K/mm3 (0.00-0.68); EOSINOPHILS PERCENT AUTO 2 % (0-6); Hematocrit 45.4 % (33.0-51.0); Hemoglobin 14.9 g/dL (11.5-16.0); IMMATURE GRAN ABSOLUTE AUTO 0.02 K/mm3 (0.00-0.10); IMMATURE GRAN PERCENT AUTO 0 % (0-1); LYMPHOCYTES ABSOLUTE AUTO 1.02 K/mm3 (0.84-5.20); LYMPHOCYTES PERCENT AUTO 16 % (21-46); MONOCYTES ABSOLUTE AUTO 0.65 K/mm3 (0.16-1.47); MONOCYTES PERCENT AUTO 10 % (4-13); Mean Corpuscular HGB Conc 32.8 g/dL (31.5-36.5); Mean Corpuscular Volume 85 fL (80-100); NEUTROPHILS ABSOLUTE AUTO 4.50 K/mm3 (1.96-9.15); NEUTROPHILS PERCENT AUTO 71 % (41-73); NRBC ABSOLUTE 0.00 K/mm3 (0.00-0.02); NRBC Auto 0.0 /100 WBC (0.0-0.2); Platelet Count 192 K/mm3 (150-400); RDW Coefficient Variation 14.5 % (11.7-14.2); RDW Standard Deviation 44.5 fL (35.1-46.3)
[2025-04-29 13:47] LABS: Alanine Aminotransfer (ALT/SGP 24.0 U/L (12-78); Albumin, Blood 3.8 g/dL (3.4-5.0); Albumin/Globulin Ratio 1.1 (0.8-1.8); Anion Gap 11.0 mmol/L (3-11); Aspartate Aminotrans (AST/SGOT 22.0 U/L (12-37); Bilirubin, Total 1.2 mg/dL (0.1-1.0); Blood Urea Nitrogen 20.0 mg/dL (8-24); CO2, Blood 28.0 mmol/L (21-32); Calcium, Blood 9.4 mg/dL (8.5-10.1); Chloride, Blood 102.0 mmol/L (98-108); Creatinine, Blood 0.85 mg/dL (0.40-1.00); Globulin, Blood 3.4 g/dL (2.2-4.0); Glucose, Blood 142.0 mg/dL (70-99); Potassium, Blood 4.4 mmol/L (3.5-5.5); Sodium, Blood 137.0 mmol/L (136-145); Thyroid Stimulating Hormone 1.067 uIU/mL (0.360-4.800); Total Protein, Blood 7.2 g/dL (6.4-8.2)
[2025-04-29 14:13] LABS: Prothrombin Time Results 26.1 Sec (9.7-11.5)
== END ==
LOC: LAB 13:21 → LAB SHORT 13:21
PROVIDERS: Physician Assistant
DX: J18.9 Pneumonia, unspecified organism (principal); R53.83 Other fatigue; Z79.01 Long term (current) use of anticoagulants
CPT/HCPCS: 80053; 83880; 84443; 85025; 85610

== ENCOUNTER → 2025-05-10 | Outpatient (CLI) | payer OTHER ==
[2025-05-10 16:08] LABS: BASOPHILS ABSOLUTE AUTO 0.03 K/mm3 (0.00-0.23); BASOPHILS PERCENT AUTO 0 % (0-2); EOSINOPHILS ABSOLUTE AUTO 0.09 K/mm3 (0.00-0.68); EOSINOPHILS PERCENT AUTO 1 % (0-6); Hematocrit 42.7 % (33.0-51.0); Hemoglobin 14.2 g/dL (11.5-16.0); IMMATURE GRAN ABSOLUTE AUTO 0.02 K/mm3 (0.00-0.10); IMMATURE GRAN PERCENT AUTO 0 % (0-1); LYMPHOCYTES ABSOLUTE AUTO 1.22 K/mm3 (0.84-5.20); LYMPHOCYTES PERCENT AUTO 17 % (21-46); MONOCYTES ABSOLUTE AUTO 0.67 K/mm3 (0.16-1.47); MONOCYTES PERCENT AUTO 10 % (4-13); Mean Corpuscular HGB Conc 33.3 g/dL (31.5-36.5); Mean Corpuscular Volume 84 fL (80-100); NEUTROPHILS ABSOLUTE AUTO 5.05 K/mm3 (1.96-9.15); NEUTROPHILS PERCENT AUTO 71 % (41-73); NRBC ABSOLUTE 0.00 K/mm3 (0.00-0.02); NRBC Auto 0.0 /100 WBC (0.0-0.2); Platelet Count 176 K/mm3 (150-400); RDW Coefficient Variation 14.5 % (11.7-14.2); RDW Standard Deviation 44.1 fL (35.1-46.3)
[2025-05-10 16:25] LABS: Alanine Aminotransfer (ALT/SGP 32.0 U/L (12-78); Albumin, Blood 3.8 g/dL (3.4-5.0); Albumin/Globulin Ratio 1.1 (0.8-1.8); Anion Gap 12.0 mmol/L (3-11); Aspartate Aminotrans (AST/SGOT 24.0 U/L (12-37); Bilirubin, Total 1.2 mg/dL (0.1-1.0); Blood Urea Nitrogen 22.0 mg/dL (8-24); CO2, Blood 28.0 mmol/L (21-32); Calcium, Blood 9.4 mg/dL (8.5-10.1); Chloride, Blood 102.0 mmol/L (98-108); Creatinine, Blood 0.83 mg/dL (0.40-1.00); Globulin, Blood 3.4 g/dL (2.2-4.0); Glucose, Blood 109.0 mg/dL (70-99); Potassium, Blood 4.1 mmol/L (3.5-5.5); Sodium, Blood 138.0 mmol/L (136-145); Total Protein, Blood 7.2 g/dL (6.4-8.2)
== END ==
LOC: LAB SHORT 16:03 → LAB 16:03
DX: R53.83 Other fatigue (principal)
CPT/HCPCS: 80053; 85025